=== PATIENT | female | born 1955 | race African-American/Black ===

== ENCOUNTER 2018-06-14 17:11 | Inpatient (IN) ==
[2018-06-14] MEDS ORDERED: Sod Chloride 0.9% Inj 1,000 ML IV.CONT SCH (17:45)
--- NOTE | 2018-06-14 17:52 | ED ---
HPI General Chief Complaint: Neuro Symptoms/Deficit Stated Complaint: stroke symptoms Time Seen by Provider: 06/14/18 17:34 Source: patient and family Mode of arrival: ambulatory Limitations: no limitations History of Present Illness HPI Narrative: 63 y/o female presents with increasing weakness and headache over the past couple of days. She states on June 11 she had an MRA that was abnormal that showed a blockage and Dr. Cortez wanted her to get CAT scans of her blood vessels and she showed me a prescription. She states that given she is feeling worse she elected to come here on his recommendation. She states when she had the abnormal MRI he started her on Plavix. She denies any other concurrent complaints. She states she has been experiencing these symptoms progressively over the past 3 months. Onset (ago): month(s) Timing confirmed by: family member Location: left arm and left leg Relieving factors: none Exacerbating factors: none On Anticoagulants: Yes Associated symptoms: denies other symptoms Related Data Home Medications Medication Instructions Recorded Confirmed empagliflozin-metformin [Synjardy] 1 tab PO BID 06/14/18 06/14/18 insulin glargine-lixisenatide 24 unit HS 06/14/18 06/14/18 [Soliqua 100/33] levothyroxine 50 mcg PO DAILY 06/14/18 06/14/18 lisinopril 5 mg PO DAILY 06/14/18 06/14/18 Previous Rx's Medication Instructions Recorded apixaban [Eliquis] 5 mg PO BID 30 Days #60 tab 06/16/18 atorvastatin 40 mg PO DAILY 30 Days #30 tab 06/16/18 Allergies Allergy/AdvReac Type Severity Reaction Status Date / Time codeine Allergy Severe Nausea/Vomi Verified 06/15/18 11:55 ting diclofenac Allergy Severe Hives Verified 06/15/18 11:55 etodolac Allergy Severe Hives Verified 06/15/18 11:55 flurbiprofen Allergy Severe Hives Verified 06/15/18 11:55 ibuprofen Allergy Severe Hives Verified 06/15/18 11:55 indomethacin Allergy Severe Hives Verified 06/15/18 11:55 ketoprofen Allergy Severe Hives Verified 06/15/18 11:55 ketorolac Allergy Severe Hives Verified 06/15/18 11:55 naproxen Allergy Severe Hives Verified 06/15/18 11:55 oxaprozin Allergy Severe Hives Verified 06/15/18 11:55 penicillin G Allergy Severe Hives Verified 06/15/18 11:55 *MDRO Multi-Drug Resistant AdvReac Unknown Hives Uncoded 06/15/18 11:55 Organism Review of Systems ROS: all other systems reviewed are negative FORMERLY [facility], [facility] Medical History Medical History Cholecystectomy planned (Acute) Diabetes (Acute) Surgical History Surgical History S/P DONYA-BSO (Acute) Social History Social History Substance History: No History of Abuse Second Hand Smoke Exposure: No Smoking Status: Never smoker How Often Do You Have a Drink Containing Alcohol: Never Recent Travel in [facility] within the Last 8 Weeks: No Recent Out of Country Travel within the Last 8 Weeks: No Immunization History Tetanus Immunization: >5 Years Hx Influenza Vaccine This Season: No Exam Narrative Exam Narrative: GENERAL: 63-year-old female in no apparent distress SKIN: Focused skin assessment warm/dry. HEAD: Atraumatic. Normocephalic. EYES: Pupils equal and round. No scleral icterus. No injection or drainage. ENT: No nasal bleeding or discharge. Mucous membranes pink and moist. NECK: Trachea midline. CARDIOVASCULAR: Regular rate and rhythm. RESPIRATORY: No accessory muscle use. Clear to auscultation. Breath sounds equal bilaterally. GASTROINTESTINAL: Abdomen soft, non-tender, nondistended. MUSCULOSKELETAL: No obvious deformities. No clubbing. No cyanosis. NEUROLOGICAL: Awake and alert. Patient has weakness to entire left side with arm more than leg. Normal speech. PSYCHIATRIC: Appropriate mood and affect; insight and judgment normal. Course Consultations Consultation #1: I spoke to Dr. Scruggs who, the reading radiologist regarding a CTA of the head and neck. There does appear to be an area of occlusion with some collaterals, he is unable to identify if this is an acute occlusion, however as the MRA showed evidence of occlusion as an outpatient on June 11 this is suspicious to have been present prior to today. This will be discussed further with the neurologist on-call for Dr. Cortez Time: 20:03 Consultation #2: I spoke to Dr. Arellano regarding this patient's case. Given the patient's findings he suspect that this is more chronic in nature as the patient does have collaterals, however he is concerned that the patient continues to have symptoms in spite of taking Plavix. He recommends that the patient be anticoagulated on heparin for ischemic stroke protocol without any boluses. He recommends Plavix be stopped. He recommends a blood pressure call of less than or equal to 200/100 with as needed labetalol if this is higher. Time: 20:17 Initial Documented Vital Signs Temperature 98 F 06/14/18 17:26 Pulse Rate 100 H 06/14/18 17:26 Respiratory Rate 16 06/14/18 17:26 Blood Pressure 197/86 H 06/14/18 17:26 Pulse Oximetry 99 06/14/18 17:26 Last Documented Vital Signs Temperature 98.5 F 06/18/18 07:00 Pulse Rate 80 06/18/18 13:00 Respiratory Rate 17 06/18/18 11:00 Blood Pressure 166/81 H 06/18/18 11:00 Pulse Oximetry 99 06/18/18 11:00 Sign Out Sign Out Data: Patient Sign Out occurred on 06/14/18 at 19:12. Patient's care was discussed, and care was transferred from Debra Berrios MD to Cary Martinez MD. Sign Out Comment: follow workup and reevaluate Last updated by Debra Berrios MD at 06/14/18 18:17 Post-Handoff Eval: During the course of the patient's emergency department visit, the patient's history, examination, and differential diagnosis were reviewed with the patient. The patient was placed on a threat monitoring analyst with oximetry and frequent blood pressure monitoring. The patient had IV access obtained and blood work sent for analysis. The patient's case was checked out to me by Dr. Berrios. Please see her complete history and physical. According to Dr. Berrios, the patient was in the process of being worked up as an outpatient for headaches and left-sided upper and lower extremity weakness by Dr. Cortez as an outpatient. Patient presented a CTA lab slip that was written to be done stat by Dr. Cortez, however had not been done yet. The patient was started on Plavix on June 11. She has been taking this consistently since then however her symptoms worsen, that she decided to come to the emergency department. The patient was initially provided Normal saline at 70 mL/h. The patient's diagnostic evaluation is remarkable for a white count of 8.2, platelets 394, differential within normal limits, hemoglobin 10.7 , PT 9.5, PTT 21.7, chemistries remarkable for a troponin I of less than 0.02, glucose 266, GFR 77, chloride 108. Urinalysis is unremarkable except for a glucose of 500 or greater. Radiologic studies are remarkable for chest x-ray that shows no acute abnormality, CT scan of the brain shows slight chronic small vessel ischemic and atrophic changes. I spoke to Dr. Arellano regarding this patient's case. Given the patient's findings he suspect that this is more chronic in nature as the patient does have collaterals, however he is concerned that the patient continues to have symptoms in spite of taking Plavix. He recommends that the patient be anticoagulated on heparin for ischemic stroke protocol without any boluses. He recommends Plavix be stopped. He recommends a blood pressure call of less than or equal to 200/100 with as needed labetalol if this is higher. The patient's case was discussed with the [facility] Hospitalist to do agree to admit the patient for continued evaluation and treatment. The patient's results were discussed with the patient, including the plan of care. I explained that further testing and/ or monitoring is indicated based on the patient's history, examination, and/ or laboratory findings. Therefore, I recommended admission for additional evaluation. The patient expressed understanding and was agreeable with this plan. The patient was admitted to the hospital in stable condition and sent to a bed under the care of the [facility] service. Medical Decision Making [facility] Narrative Medical decision making narrative: Will check blood work, CT and CTA imaging and reevaluate Medical Screen Exam Complete: Yes Emergency Medical Condition: Yes Differential Diagnosis Differential Diagnosis: Stroke, bleed, mass Lab Data Result diagrams: 06/16/18 04:24 06/14/18 17:53 Lab Results 06/14/18 06/14/18 06/14/18 Range/Units 17:53 17:53 18:30 WBC 8.2 (4.0-11.0) th/mm3 RBC 4.42 (4.00-5.30) mil/mm3 Hgb 10.7 L (11.6-15.3) gm/dL Hct 33.7 L (35.0-46.0) % MCV 76.3 L (80.0-100.0) fL MCH 24.3 L (27.0-34.0) pg MCHC 31.9 L (32.0-36.0) % RDW 15.6 (11.6-17.2) % Plt Count 394 (150-450) th/mm3 MPV 8.7 (7.0-11.0) fL Neut % (Auto) 56.3 (16.0-70.0) % Lymph % (Auto) 35.1 (9.0-44.0) % Mccreary % (Auto) 6.3 (0.0-8.0) % Eos % (Auto) 1.8 (0.0-4.0) % Baso % (Auto) 0.5 (0.0-2.0) % Neut # (Auto) 4.6 (1.8-7.7) th/mm3 Lymph # (Auto) 2.9 (1.0-4.8) th/mm3 Mccreary # (Auto) 0.5 (0.0-0.9) th/mm3 Eos # (Auto) 0.1 (0.0-0.4) th/mm3 Baso # (Auto) 0.0 (0.0-0.2) th/mm3 WBC Differential . Differential Comment Auto diff final ESR (0-30) mm/hr PT (9.8-11.6) sec INR Ratio APTT (24.3-30.1) sec Sodium 141 (136-145) meq/L Potassium 4.8 (3.5-5.1) meq/L Chloride 108 H (98-107) meq/L Carbon Dioxide 25.5 (21.0-32.0) meq/L Anion Gap 8 (5-15) meq/L BUN 15 (7-18) mg/dL Creatinine 0.90 (0.50-1.00) mg/dL Estimated GFR 77 L (>89) mL/min POC Glucose (68-110) mg/dl Random Glucose 266 H (74-106) mg/dL Hemoglobin A1c (4.3-6.0) % Calcium 9.1 (8.5-10.1) mg/dL Total Bilirubin 0.4 (0.2-1.0) mg/dL AST 32 (15-37) U/L ALT 22 (10-53) U/L Alkaline Phosphatase 110 (45-117) U/L Total Creatine Kinase 189 (26-192) U/L CK-MB (CK-2) 1.1 (0.5-3.6) ng/mL Troponin I Less than 0.02 L (0.02-0.05) ng/mL C-Reactive Protein (0.00-0.30) mg/dL Total Protein 8.2 (6.4-8.2) g/dL Total Protein (PEP) (6.4-8.2) gm/dL Albumin 3.5 (3.4-5.0) g/dL Albumin (PEP) (3.50-5.00) gm/dL Albumin/Globulin Ratio (1.39-2.23) Lgelo-3-Nhuaqqjww (0.11-0.29) gm/dL Yuirz-0-Etldzasjb (0.22-1.00) gm/dL Beta Globulins (0.53-1.03) gm/dL Gamma Globulins (0.50-1.39) gm/dL Triglycerides (42-150) mg/dL Cholesterol (120-200) mg/dL LDL Cholesterol, Calc (0-99) mg/dL HDL Cholesterol (40.0-60.0) mg/dL Cholesterol/HDL Ratio Ratio Vitamin B12 (193-986) pg/mL TSH (0.358-3.740) uIU/mL Free T4 (0.76-1.46) ng/dL Urine Color Straw (Yellw/Straw) Urine Clarity Clear (Clear) Urine pH 6.0 (5.0-8.5) Ur Specific [place] 1.029 (1.002-1.035) Urine Protein Negative (Neg-Trace) mg/dL Urine Glucose (UA) 500 or greater (Negative) mg/dL Urine Ketones Negative (Negative) mg/dL Urine Occult Blood Negative (Negative) Urine Nitrate Negative (Negative) Urine Bilirubin Negative (Negative) Urine Urobilinogen Less than 2 (Less than 2) mg/dL Ur Leukocyte Esterase Negative (Negative) Urine RBC 1 (0-3) /hpf Urine WBC 1 (0-5) /hpf Ur Squamous Epith Cells 1 (0-5) /hpf Micro UA Comment Culture not ind Ur Microscopic Review Not Reportable Urine Culture Comments Culture not ind JOSLYN Screen (Neg) RPR (Nonreactive) Blood Type Antibody Screen 06/14/18 06/14/18 06/15/18 Range/Units 18:30 18:30 03:12 WBC (4.0-11.0) th/mm3 RBC (4.00-5.30) mil/mm3 Hgb (11.6-15.3) gm/dL Hct (35.0-46.0) % MCV (80.0-100.0) fL MCH (27.0-34.0) pg MCHC (32.0-36.0) % RDW (11.6-17.2) % Plt Count (150-450) th/mm3 MPV (7.0-11.0) fL Neut % (Auto) (16.0-70.0) % Lymph % (Auto) (9.0-44.0) % Mccreary % (Auto) (0.0-8.0) % Eos % (Auto) (0.0-4.0) % Baso % (Auto) (0.0-2.0) % Neut # (Auto) (1.8-7.7) th/mm3 Lymph # (Auto) (1.0-4.8) th/mm3 Mccreary # (Auto) (0.0-0.9) th/mm3 Eos # (Auto) (0.0-0.4) th/mm3 Baso # (Auto) (0.0-0.2) th/mm3 WBC Differential Differential Comment ESR (0-30) mm/hr PT 9.5 L (9.8-11.6) sec INR 0.9 Ratio APTT 21.7 L (24.3-30.1) sec Sodium (136-145) meq/L Potassium (3.5-5.1) meq/L Chloride (98-107) meq/L Carbon Dioxide (21.0-32.0) meq/L Anion Gap (5-15) meq/L BUN (7-18) mg/dL Creatinine (0.50-1.00) mg/dL Estimated GFR (>89) mL/min POC Glucose 179 H (68-110) mg/dl Random Glucose (74-106) mg/dL Hemoglobin A1c (4.3-6.0) % Calcium (8.5-10.1) mg/dL Total Bilirubin (0.2-1.0) mg/dL AST (15-37) U/L ALT (10-53) U/L Alkaline Phosphatase (45-117) U/L Total Creatine Kinase (26-192) U/L CK-MB (CK-2) (0.5-3.6) ng/mL Troponin I (0.02-0.05) ng/mL C-Reactive Protein (0.00-0.30) mg/dL Total Protein (6.4-8.2) g/dL Total Protein (PEP) (6.4-8.2) gm/dL Albumin (3.4-5.0) g/dL Albumin (PEP) (3.50-5.00) gm/dL Albumin/Globulin Ratio (1.39-2.23) Xipog-8-Befdjnqlk (0.11-0.29) gm/dL Zzsyc-8-Jaqhymmwt (0.22-1.00) gm/dL Beta Globulins (0.53-1.03) gm/dL Gamma Globulins (0.50-1.39) gm/dL Triglycerides (42-150) mg/dL Cholesterol (120-200) mg/dL LDL Cholesterol, Calc (0-99) mg/dL HDL Cholesterol (40.0-60.0) mg/dL Cholesterol/HDL Ratio Ratio Vitamin B12 (193-986) pg/mL TSH (0.358-3.740) uIU/mL Free T4 (0.76-1.46) ng/dL Urine Color (Yellw/Straw) Urine Clarity (Clear) Urine pH (5.0-8.5) Ur Specific [place] (1.002-1.035) Urine Protein (Neg-Trace) mg/dL Urine Glucose (UA) (Negative) mg/dL Urine Ketones (Negative) mg/dL Urine Occult Blood (Negative) Urine Nitrate (Negative) Urine Bilirubin (Negative) Urine Urobilinogen (Less than 2) mg/dL Ur Leukocyte Esterase (Negative) Urine RBC (0-3) /hpf Urine WBC (0-5) /hpf Ur Squamous Epith Cells (0-5) /hpf Micro UA Comment Ur Microscopic Review Urine Culture Comments JOSLYN Screen (Neg) RPR (Nonreactive) Blood Type B Positive Antibody Screen Negative 06/15/18 06/15/18 06/15/18 Range/Units 03:22 03:22 03:22 WBC (4.0-11.0) th/mm3 RBC (4.00-5.30) mil/mm3 Hgb (11.6-15.3) gm/dL Hct (35.0-46.0) % MCV (80.0-100.0) fL MCH (27.0-34.0) pg MCHC (32.0-36.0) % RDW (11.6-17.2) % Plt Count (150-450) th/mm3 MPV (7.0-11.0) fL Neut % (Auto) (16.0-70.0) % Lymph % (Auto) (9.0-44.0) % Mccreary % (Auto) (0.0-8.0) % Eos % (Auto) (0.0-4.0) % Baso % (Auto) (0.0-2.0) % Neut # (Auto) (1.8-7.7) th/mm3 Lymph # (Auto) (1.0-4.8) th/mm3 Mccreary # (Auto) (0.0-0.9) th/mm3 Eos # (Auto) (0.0-0.4) th/mm3 Baso # (Auto) (0.0-0.2) th/mm3 WBC Differential Differential Comment ESR (0-30) mm/hr PT (9.8-11.6) sec INR Ratio APTT 37.3 H D (24.3-30.1) sec Sodium (136-145) meq/L Potassium (3.5-5.1) meq/L Chloride (98-107) meq/L Carbon Dioxide (21.0-32.0) meq/L Anion Gap (5-15) meq/L BUN (7-18) mg/dL Creatinine (0.50-1.00) mg/dL Estimated GFR (>89) mL/min POC Glucose (68-110) mg/dl Random Glucose (74-106) mg/dL Hemoglobin A1c 10.6 H (4.3-6.0) % Calcium (8.5-10.1) mg/dL Total Bilirubin (0.2-1.0) mg/dL AST (15-37) U/L ALT (10-53) U/L Alkaline Phosphatase (45-117) U/L Total Creatine Kinase (26-192) U/L CK-MB (CK-2) (0.5-3.6) ng/mL Troponin I (0.02-0.05) ng/mL C-Reactive Protein (0.00-0.30) mg/dL Total Protein (6.4-8.2) g/dL Total Protein (PEP) (6.4-8.2) gm/dL Albumin (3.4-5.0) g/dL Albumin (PEP) (3.50-5.00) gm/dL Albumin/Globulin Ratio (1.39-2.23) Khxky-6-Czwgmcylg (0.11-0.29) gm/dL Jkrus-9-Jppwcxzbh (0.22-1.00) gm/dL Beta Globulins (0.53-1.03) gm/dL Gamma Globulins (0.50-1.39) gm/dL Triglycerides 110 (42-150) mg/dL Cholesterol 141 (120-200) mg/dL LDL Cholesterol, Calc 56 (0-99) mg/dL HDL Cholesterol 63.1 H (40.0-60.0) mg/dL Cholesterol/HDL Ratio 2.23 Ratio Vitamin B12 (193-986) pg/mL TSH (0.358-3.740) uIU/mL Free T4 (0.76-1.46) ng/dL Urine Color (Yellw/Straw) Urine Clarity (Clear) Urine pH (5.0-8.5) Ur Specific [place] (1.002-1.035) Urine Protein (Neg-Trace) mg/dL Urine Glucose (UA) (Negative) mg/dL Urine Ketones (Negative) mg/dL Urine Occult Blood (Negative) Urine Nitrate (Negative) Urine Bilirubin (Negative) Urine Urobilinogen (Less than 2) mg/dL Ur Leukocyte Esterase (Negative) Urine RBC (0-3) /hpf Urine WBC (0-5) /hpf Ur Squamous Epith Cells (0-5) /hpf Micro UA Comment Ur Microscopic Review Urine Culture Comments JOSLYN Screen (Neg) RPR (Nonreactive) Blood Type Antibody Screen 06/15/18 06/15/18 06/15/18 Range/Units 03:22 03:22 03:22 WBC 9.3 (4.0-11.0) th/mm3 RBC 4.19 (4.00-5.30) mil/mm3 Hgb 10.7 L (11.6-15.3) gm/dL Hct 31.6 L (35.0-46.0) % MCV 75.5 L (80.0-100.0) fL MCH 25.6 L (27.0-34.0) pg MCHC 33.9 (32.0-36.0) % RDW 15.4 (11.6-17.2) % Plt Count 331 (150-450) th/mm3 MPV 8.2 (7.0-11.0) fL Neut % (Auto) (16.0-70.0) % Lymph % (Auto) (9.0-44.0) % Mccreary % (Auto) (0.0-8.0) % Eos % (Auto) (0.0-4.0) % Baso % (Auto) (0.0-2.0) % Neut # (Auto) (1.8-7.7) th/mm3 Lymph # (Auto) (1.0-4.8) th/mm3 Mccreary # (Auto) (0.0-0.9) th/mm3 Eos # (Auto) (0.0-0.4) th/mm3 Baso # (Auto) (0.0-0.2) th/mm3 WBC Differential Differential Comment ESR 33 H (0-30) mm/hr PT (9.8-11.6) sec INR Ratio APTT (24.3-30.1) sec Sodium (136-145) meq/L Potassium (3.5-5.1) meq/L Chloride (98-107) meq/L Carbon Dioxide (21.0-32.0) meq/L Anion Gap (5-15) meq/L BUN (7-18) mg/dL Creatinine (0.50-1.00) mg/dL Estimated GFR (>89) mL/min POC Glucose (68-110) mg/dl Random Glucose (74-106) mg/dL Hemoglobin A1c (4.3-6.0) % Calcium (8.5-10.1) mg/dL Total Bilirubin (0.2-1.0) mg/dL AST (15-37) U/L ALT (10-53) U/L Alkaline Phosphatase (45-117) U/L Total Creatine Kinase (26-192) U/L CK-MB (CK-2) (0.5-3.6) ng/mL Troponin I (0.02-0.05) ng/mL C-Reactive Protein Less than 0.29 (0.00-0.30) mg/dL Total Protein (6.4-8.2) g/dL Total Protein (PEP) (6.4-8.2) gm/dL Albumin (3.4-5.0) g/dL Albumin (PEP) (3.50-5.00) gm/dL Albumin/Globulin Ratio (1.39-2.23) Jyccc-9-Afjnnyila (0.11-0.29) gm/dL Thegv-3-Khzdgmmlp (0.22-1.00) gm/dL Beta Globulins (0.53-1.03) gm/dL Gamma Globulins (0.50-1.39) gm/dL Triglycerides (42-150) mg/dL Cholesterol (120-200) mg/dL LDL Cholesterol, Calc (0-99) mg/dL HDL Cholesterol (40.0-60.0) mg/dL Cholesterol/HDL Ratio Ratio Vitamin B12 (193-986) pg/mL TSH (0.358-3.740) uIU/mL Free T4 (0.76-1.46) ng/dL Urine Color (Yellw/Straw) Urine Clarity (Clear) Urine pH (5.0-8.5) Ur Specific [place] (1.002-1.035) Urine Protein (Neg-Trace) mg/dL Urine Glucose (UA) (Negative) mg/dL Urine Ketones (Negative) mg/dL Urine Occult Blood (Negative) Urine Nitrate (Negative) Urine Bilirubin (Negative) Urine Urobilinogen (Less than 2) mg/dL Ur Leukocyte Esterase (Negative) Urine RBC (0-3) /hpf Urine WBC (0-5) /hpf Ur Squamous Epith Cells (0-5) /hpf Micro UA Comment Ur Microscopic Review Urine Culture Comments JOSLYN Screen (Neg) RPR (Nonreactive) Blood Type Antibody Screen 06/15/18 06/15/18 06/15/18 Range/Units 08:01 09:17 11:38 WBC (4.0-11.0) th/mm3 RBC (4.00-5.30) mil/mm3 Hgb (11.6-15.3) gm/dL Hct (35.0-46.0) % MCV (80.0-100.0) fL MCH (27.0-34.0) pg MCHC (32.0-36.0) % RDW (11.6-17.2) % Plt Count (150-450) th/mm3 MPV (7.0-11.0) fL Neut % (Auto) (16.0-70.0) % Lymph % (Auto) (9.0-44.0) % Mccre[place] % (Auto) (0.0-8.0) % Eos % (Auto) (0.0-4.0) % Baso % (Auto) (0.0-2.0) % Neut # (Auto) (1.8-7.7) th/mm3 Lymph # (Auto) (1.0-4.8) th/mm3 Mccreary # (Auto) (0.0-0.9) th/mm3 Eos # (Auto) (0.0-0.4) th/mm3 Baso # (Auto) (0.0-0.2) th/mm3 WBC Differential Differential Comment ESR (0-30) mm/hr PT (9.8-11.6) sec INR Ratio APTT 41.7 H (24.3-30.1) sec Sodium (136-145) meq/L Potassium (3.5-5.1) meq/L Chloride (98-107) meq/L Carbon Dioxide (21.0-32.0) meq/L Anion Gap (5-15) meq/L BUN (7-18) mg/dL Creatinine (0.50-1.00) mg/dL Estimated GFR (>89) mL/min POC Glucose 157 H 148 H (68-110) mg/dl Random Glucose (74-106) mg/dL Hemoglobin A1c (4.3-6.0) % Calcium (8.5-10.1) mg/dL Total Bilirubin (0.2-1.0) mg/dL AST (15-37) U/L ALT (10-53) U/L Alkaline Phosphatase (45-117) U/L Total Creatine Kinase (26-192) U/L CK-MB (CK-2) (0.5-3.6) ng/mL Troponin I (0.02-0.05) ng/mL C-Reactive Protein (0.00-0.30) mg/dL Total Protein (6.4-8.2) g/dL Total Protein (PEP) (6.4-8.2) gm/dL Albumin (3.4-5.0) g/dL Albumin (PEP) (3.50-5.00) gm/dL Albumin/Globulin Ratio (1.39-2.23) Cjqxa-7-Aujxmvvcw (0.11-0.29) gm/dL Oteei-4-Xieovdhxn (0.22-1.00) gm/dL Beta Globulins (0.53-1.03) gm/dL Gamma Globulins (0.50-1.39) gm/dL Triglycerides (42-150) mg/dL Cholesterol (120-200) mg/dL LDL Cholesterol, Calc (0-99) mg/dL HDL Cholesterol (40.0-60.0) mg/dL Cholesterol/HDL Ratio Ratio Vitamin B12 (193-986) pg/mL TSH (0.358-3.740) uIU/mL Free T4 (0.76-1.46) ng/dL Urine Color (Yellw/Straw) Urine Clarity (Clear) Urine pH (5.0-8.5) Ur Specific [place] (1.002-1.035) Urine Protein (Neg-Trace) mg/dL Urine Glucose (UA) (Negative) mg/dL Urine Ketones (Negative) mg/dL Urine Occult Blood (Negative) Urine Nitrate (Negative) Urine Bilirubin (Negative) Urine Urobilinogen (Less than 2) mg/dL Ur Leukocyte Esterase (Negative) Urine RBC (0-3) /hpf Urine WBC (0-5) /hpf Ur Squamous Epith Cells (0-5) /hpf Micro UA Comment Ur Microscopic Review Urine Culture Comments JOSLYN Screen (Neg) RPR (Nonreactive) Blood Type Antibody Screen 06/15/18 06/15/18 06/15/18 Range/Units 15:12 17:23 20:12 WBC (4.0-11.0) th/mm3 RBC (4.00-5.30) mil/mm3 Hgb (11.6-15.3) gm/dL Hct (35.0-46.0) % MCV (80.0-100.0) fL MCH (27.0-34.0) pg MCHC (32.0-36.0) % RDW (11.6-17.2) % Plt Count (150-450) th/mm3 MPV (7.0-11.0) fL Neut % (Auto) (16.0-70.0) % Lymph % (Auto) (9.0-44.0) % Mccre[place] % (Auto) (0.0-8.0) % Eos % (Auto) (0.0-4.0) % Baso % (Auto) (0.0-2.0) % Neut # (Auto) (1.8-7.7) th/mm3 Lymph # (Auto) (1.0-4.8) th/mm3 Mccreary # (Auto) (0.0-0.9) th/mm3 Eos # (Auto) (0.0-0.4) th/mm3 Baso # (Auto) (0.0-0.2) th/mm3 WBC Differential Differential Comment ESR (0-30) mm/hr PT (9.8-11.6) sec INR Ratio APTT 25.2 D (24.3-30.1) sec Sodium (136-145) meq/L Potassium (3.5-5.1) meq/L Chloride (98-107) meq/L Carbon Dioxide (21.0-32.0) meq/L Anion Gap (5-15) meq/L BUN (7-18) mg/dL Creatinine (0.50-1.00) mg/dL Estimated GFR (>89) mL/min POC Glucose 172 H 228 H (68-110) mg/dl Random Glucose (74-106) mg/dL Hemoglobin A1c (4.3-6.0) % Calcium (8.5-10.1) mg/dL Total Bilirubin (0.2-1.0) mg/dL AST (15-37) U/L ALT (10-53) U/L Alkaline Phosphatase (45-117) U/L Total Creatine Kinase (26-192) U/L CK-MB (CK-2) (0.5-3.6) ng/mL Troponin I (0.02-0.05) ng/mL C-Reactive Protein (0.00-0.30) mg/dL Total Protein (6.4-8.2) g/dL Total Protein (PEP) (6.4-8.2) gm/dL Albumin (3.4-5.0) g/dL Albumin (PEP) (3.50-5.00) gm/dL Albumin/Globulin Ratio (1.39-2.23) Bibqu-0-Zwstgbmpt (0.11-0.29) gm/dL Rbjyr-7-Mibzijseb (0.22-1.00) gm/dL Beta Globulins (0.53-1.03) gm/dL Gamma Globulins (0.50-1.39) gm/dL Triglycerides (42-150) mg/dL Cholesterol (120-200) mg/dL LDL Cholesterol, Calc (0-99) mg/dL HDL Cholesterol (40.0-60.0) mg/dL Cholesterol/HDL Ratio Ratio Vitamin B12 (193-986) pg/mL TSH (0.358-3.740) uIU/mL Free T4 (0.76-1.46) ng/dL Urine Color (Yellw/Straw) Urine Clarity (Clear) Urine pH (5.0-8.5) Ur Specific [place] (1.002-1.035) Urine Protein (Neg-Trace) mg/dL Urine Glucose (UA) (Negative) mg/dL Urine Ketones (Negative) mg/dL Urine Occult Blood (Negative) Urine Nitrate (Negative) Urine Bilirubin (Negative) Urine Urobilinogen (Less than 2) mg/dL Ur Leukocyte Esterase (Negative) Urine RBC (0-3) /hpf Urine WBC (0-5) /hpf Ur Squamous Epith Cells (0-5) /hpf Micro UA Comment Ur Microscopic Review Urine Culture Comments JOSLYN Screen (Neg) RPR (Nonreactive) Blood Type Antibody Screen 06/15/18 06/16/18 06/16/18 Range/Units 21:37 03:52 04:24 WBC 6.7 (4.0-11.0) th/mm3 RBC 4.51 (4.00-5.30) mil/mm3 Hgb 10.8 L (11.6-15.3) gm/dL Hct 34.2 L (35.0-46.0) % MCV 75.8 L (80.0-100.0) fL MCH 24.0 L (27.0-34.0) pg MCHC 31.6 L (32.0-36.0) % RDW 15.6 (11.6-17.2) % Plt Count 344 (150-450) th/mm3 MPV 8.3 (7.0-11.0) fL Neut % (Auto) (16.0-70.0) % Lymph % (Auto) (9.0-44.0) % Mccreary % (Auto) (0.0-8.0) % Eos % (Auto) (0.0-4.0) % Baso % (Auto) (0.0-2.0) % Neut # (Auto) (1.8-7.7) th/mm3 Lymph # (Auto) (1.0-4.8) th/mm3 Mccreary # (Auto) (0.0-0.9) th/mm3 Eos # (Auto) (0.0-0.4) th/mm3 Baso # (Auto) (0.0-0.2) th/mm3 WBC Differential Differential Comment ESR (0-30) mm/hr PT (9.8-11.6) sec INR Ratio APTT 46.5 H D (24.3-30.1) sec Sodium (136-145) meq/L Potassium (3.5-5.1) meq/L Chloride (98-107) meq/L Carbon Dioxide (21.0-32.0) meq/L Anion Gap (5-15) meq/L BUN (7-18) mg/dL Creatinine (0.50-1.00) mg/dL Estimated GFR (>89) mL/min POC Glucose 237 H (68-110) mg/dl Random Glucose (74-106) mg/dL Hemoglobin A1c (4.3-6.0) % Calcium (8.5-10.1) mg/dL Total Bilirubin (0.2-1.0) mg/dL AST (15-37) U/L ALT (10-53) U/L Alkaline Phosphatase (45-117) U/L Total Creatine Kinase (26-192) U/L CK-MB (CK-2) (0.5-3.6) ng/mL Troponin I (0.02-0.05) ng/mL C-Reactive Protein (0.00-0.30) mg/dL Total Protein (6.4-8.2) g/dL Total Protein (PEP) (6.4-8.2) gm/dL Albumin (3.4-5.0) g/dL Albumin (PEP) (3.50-5.00) gm/dL Albumin/Globulin Ratio (1.39-2.23) Eebbd-7-Vbxzqbpxb (0.11-0.29) gm/dL Bjnkn-6-Upbxbewmt (0.22-1.00) gm/dL Beta Globulins (0.53-1.03) gm/dL Gamma Globulins (0.50-1.39) gm/dL Triglycerides (42-150) mg/dL Cholesterol (120-200) mg/dL LDL Cholesterol, Calc (0-99) mg/dL HDL Cholesterol (40.0-60.0) mg/dL Cholesterol/HDL Ratio Ratio Vitamin B12 (193-986) pg/mL TSH (0.358-3.740) uIU/mL Free T4 (0.76-1.46) ng/dL Urine Color (Yellw/Straw) Urine Clarity (Clear) Urine pH (5.0-8.5) Ur Specific [place] (1.002-1.035) Urine Protein (Neg-Trace) mg/dL Urine Glucose (UA) (Negative) mg/dL Urine Ketones (Negative) mg/dL Urine Occult Blood (Negative) Urine Nitrate (Negative) Urine Bilirubin (Negative) Urine Urobilinogen (Less than 2) mg/dL Ur Leukocyte Esterase (Negative) Urine RBC (0-3) /hpf Urine WBC (0-5) /hpf Ur Squamous Epith Cells (0-5) /hpf Micro UA Comment Ur Microscopic Review Urine Culture Comments JOSLYN Screen (Neg) RPR (Nonreactive) Blood Type Antibody Screen 06/16/18 06/16/18 06/16/18 Range/Units 04:24 07:42 17:34 WBC (4.0-11.0) th/mm3 RBC (4.00-5.30) mil/mm3 Hgb (11.6-15.3) gm/dL Hct (35.0-46.0) % MCV (80.0-100.0) fL MCH (27.0-34.0) pg MCHC (32.0-36.0) % RDW (11.6-17.2) % Plt Count (150-450) th/mm3 MPV (7.0-11.0) fL Neut % (Auto) (16.0-70.0) % Lymph % (Auto) (9.0-44.0) % Mccreary % (Auto) (0.0-8.0) % Eos % (Auto) (0.0-4.0) % Baso % (Auto) (0.0-2.0) % Neut # (Auto) (1.8-7.7) th/mm3 Lymph # (Auto) (1.0-4.8) th/mm3 Mccreary # (Auto) (0.0-0.9) th/mm3 Eos # (Auto) (0.0-0.4) th/mm3 Baso # (Auto) (0.0-0.2) th/mm3 WBC Differential Differential Comment ESR (0-30) mm/hr PT (9.8-11.6) sec INR Ratio APTT 60.7 H D (24.3-30.1) sec Sodium (136-145) meq/L Potassium (3.5-5.1) meq/L Chloride (98-107) meq/L Carbon Dioxide (21.0-32.0) meq/L Anion Gap (5-15) meq/L BUN (7-18) mg/dL Creatinine (0.50-1.00) mg/dL Estimated GFR (>89) mL/min POC Glucose 170 H 197 H (68-110) mg/dl Random Glucose (74-106) mg/dL Hemoglobin A1c (4.3-6.0) % Calcium (8.5-10.1) mg/dL Total Bilirubin (0.2-1.0) mg/dL AST (15-37) U/L ALT (10-53) U/L Alkaline Phosphatase (45-117) U/L Total Creatine Kinase (26-192) U/L CK-MB (CK-2) (0.5-3.6) ng/mL Troponin I (0.02-0.05) ng/mL C-Reactive Protein (0.00-0.30) mg/dL Total Protein (6.4-8.2) g/dL Total Protein (PEP) (6.4-8.2) gm/dL Albumin (3.4-5.0) g/dL Albumin (PEP) (3.50-5.00) gm/dL Albumin/Globulin Ratio (1.39-2.23) Cqsob-6-Bpakryjjl (0.11-0.29) gm/dL Wkdcl-6-Pgjmhgvmq (0.22-1.00) gm/dL Beta Globulins (0.53-1.03) gm/dL Gamma Globulins (0.50-1.39) gm/dL Triglycerides (42-150) mg/dL Cholesterol (120-200) mg/dL LDL Cholesterol, Calc (0-99) mg/dL HDL Cholesterol (40.0-60.0) mg/dL Cholesterol/HDL Ratio Ratio Vitamin B12 (193-986) pg/mL TSH (0.358-3.740) uIU/mL Free T4 (0.76-1.46) ng/dL Urine Color (Yellw/Straw) Urine Clarity (Clear) Urine pH (5.0-8.5) Ur Specific [place] (1.002-1.035) Urine Protein (Neg-Trace) mg/dL Urine Glucose (UA) (Negative) mg/dL Urine Ketones (Negative) mg/dL Urine Occult Blood (Negative) Urine Nitrate (Negative) Urine Bilirubin (Negative) Urine Urobilinogen (Less than 2) mg/dL Ur Leukocyte Esterase (Negative) Urine RBC (0-3) /hpf Urine WBC (0-5) /hpf Ur Squamous Epith Cells (0-5) /hpf Micro UA Comment Ur Microscopic Review Urine Culture Comments JOSLYN Screen (Neg) RPR (Nonreactive) Blood Type Antibody Screen 06/16/18 06/17/18 06/17/18 Range/Units 21:47 01:51 07:58 WBC (4.0-11.0) th/mm3 RBC (4.00-5.30) mil/mm3 Hgb (11.6-15.3) gm/dL Hct (35.0-46.0) % MCV (80.0-100.0) fL MCH (27.0-34.0) pg MCHC (32.0-36.0) % RDW (11.6-17.2) % Plt Count (150-450) th/mm3 MPV (7.0-11.0) fL Neut % (Auto) (16.0-70.0) % Lymph % (Auto) (9.0-44.0) % Mccreary % (Auto) (0.0-8.0) % Eos % (Auto) (0.0-4.0) % Baso % (Auto) (0.0-2.0) % Neut # (Auto) (1.8-7.7) th/mm3 Lymph # (Auto) (1.0-4.8) th/mm3 Mccreary # (Auto) (0.0-0.9) th/mm3 Eos # (Auto) (0.0-0.4) th/mm3 Baso # (Auto) (0.0-0.2) th/mm3 WBC Differential Differential Comment ESR (0-30) mm/hr PT (9.8-11.6) sec INR Ratio APTT (24.3-30.1) sec Sodium (136-145) meq/L Potassium (3.5-5.1) meq/L Chloride (98-107) meq/L Carbon Dioxide (21.0-32.0) meq/L Anion Gap (5-15) meq/L BUN (7-18) mg/dL Creatinine (0.50-1.00) mg/dL Estimated GFR (>89) mL/min POC Glucose 241 H 250 H 168 H (68-110) mg/dl Random Glucose (74-106) mg/dL Hemoglobin A1c (4.3-6.0) % Calcium (8.5-10.1) mg/dL Total Bilirubin (0.2-1.0) mg/dL AST (15-37) U/L ALT (10-53) U/L Alkaline Phosphatase (45-117) U/L Total Creatine Kinase (26-192) U/L CK-MB (CK-2) (0.5-3.6) ng/mL Troponin I (0.02-0.05) ng/mL C-Reactive Protein (0.00-0.30) mg/dL Total Protein (6.4-8.2) g/dL Total Protein (PEP) (6.4-8.2) gm/dL Albumin (3.4-5.0) g/dL Albumin (PEP) (3.50-5.00) gm/dL Albumin/Globulin Ratio (1.39-2.23) Wgqhv-8-Qzlybfqft (0.11-0.29) gm/dL Vwiwo-0-Mzffraoaw (0.22-1.00) gm/dL Beta Globulins (0.53-1.03) gm/dL Gamma Globulins (0.50-1.39) gm/dL Triglycerides (42-150) mg/dL Cholesterol (120-200) mg/dL LDL Cholesterol, Calc (0-99) mg/dL HDL Cholesterol (40.0-60.0) mg/dL Cholesterol/HDL Ratio Ratio Vitamin B12 (193-986) pg/mL TSH (0.358-3.740) uIU/mL Free T4 (0.76-1.46) ng/dL Urine Color (Yellw/Straw) Urine Clarity (Clear) Urine pH (5.0-8.5) Ur Specific [place] (1.002-1.035) Urine Protein (Neg-Trace) mg/dL Urine Glucose (UA) (Negative) mg/dL Urine Ketones (Negative) mg/dL Urine Occult Blood (Negative) Urine Nitrate (Negative) Urine Bilirubin (Negative) Urine Urobilinogen (Less than 2) mg/dL Ur Leukocyte Esterase (Negative) Urine RBC (0-3) /hpf Urine WBC (0-5) /hpf Ur Squamous Epith Cells (0-5) /hpf Micro UA Comment Ur Microscopic Review Urine Culture Comments JOSLYN Screen (Neg) RPR (Nonreactive) Blood Type Antibody Screen 06/17/18 06/17/18 06/17/18 Range/Units 09:31 11:00 11:00 WBC (4.0-11.0) th/mm3 RBC (4.00-5.30) mil/mm3 Hgb (11.6-15.3) gm/dL Hct (35.0-46.0) % MCV (80.0-100.0) fL MCH (27.0-34.0) pg MCHC (32.0-36.0) % RDW (11.6-17.2) % Plt Count (150-450) th/mm3 MPV (7.0-11.0) fL Neut % (Auto) (16.0-70.0) % Lymph % (Auto) (9.0-44.0) % [place]re[place] % (Auto) (0.0-8.0) % Eos % (Auto) (0.0-4.0) % Baso % (Auto) (0.0-2.0) % Neut # (Auto) (1.8-7.7) th/mm3 Lymph # (Auto) (1.0-4.8) th/mm3 Mccreary # (Auto) (0.0-0.9) th/mm3 Eos # (Auto) (0.0-0.4) th/mm3 Baso # (Auto) (0.0-0.2) th/mm3 WBC Differential Differential Comment ESR (0-30) mm/hr PT (9.8-11.6) sec INR Ratio APTT (24.3-30.1) sec Sodium (136-145) meq/L Potassium (3.5-5.1) meq/L Chloride (98-107) meq/L Carbon Dioxide (21.0-32.0) meq/L Anion Gap (5-15) meq/L BUN (7-18) mg/dL Creatinine (0.50-1.00) mg/dL Estimated GFR (>89) mL/min POC Glucose (68-110) mg/dl Random Glucose (74-106) mg/dL Hemoglobin A1c (4.3-6.0) % Calcium (8.5-10.1) mg/dL Total Bilirubin (0.2-1.0) mg/dL AST (15-37) U/L ALT (10-53) U/L Alkaline Phosphatase (45-117) U/L Total Creatine Kinase (26-192) U/L CK-MB (CK-2) (0.5-3.6) ng/mL Troponin I Cancelled Less than 0.02 L (0.02-0.05) ng/mL C-Reactive Protein (0.00-0.30) mg/dL Total Protein (6.4-8.2) g/dL Total Protein (PEP) (6.4-8.2) gm/dL Albumin (3.4-5.0) g/dL Albumin (PEP) (3.50-5.00) gm/dL Albumin/Globulin Ratio (1.39-2.23) Ekxrp-0-Ttfwbsnrp (0.11-0.29) gm/dL Hfqls-6-Rlntphpyv (0.22-1.00) gm/dL Beta Globulins (0.53-1.03) gm/dL Gamma Globulins (0.50-1.39) gm/dL Triglycerides (42-150) mg/dL Cholesterol (120-200) mg/dL LDL Cholesterol, Calc (0-99) mg/dL HDL Cholesterol (40.0-60.0) mg/dL Cholesterol/HDL Ratio Ratio Vitamin B12 (193-986) pg/mL TSH 1.930 (0.358-3.740) uIU/mL Free T4 (0.76-1.46) ng/dL Urine Color (Yellw/Straw) Urine Clarity (Clear) Urine pH (5.0-8.5) Ur Specific [place] (1.002-1.035) Urine Protein (Neg-Trace) mg/dL Urine Glucose (UA) (Negative) mg/dL Urine Ketones (Negative) mg/dL Urine Occult Blood (Negative) Urine Nitrate (Negative) Urine Bilirubin (Negative) Urine Urobilinogen (Less than 2) mg/dL Ur Leukocyte Esterase (Negative) Urine RBC (0-3) /hpf Urine WBC (0-5) /hpf Ur Squamous Epith Cells (0-5) /hpf Micro UA Comment Ur Microscopic Review Urine Culture Comments JOSLYN Screen (Neg) RPR (Nonreactive) Blood Type Antibody Screen 06/17/18 06/17/18 06/17/18 Range/Units 11:00 11:00 11:05 WBC (4.0-11.0) th/mm3 RBC (4.00-5.30) mil/mm3 Hgb (11.6-15.3) gm/dL Hct (35.0-46.0) % MCV (80.0-100.0) fL MCH (27.0-34.0) pg MCHC (32.0-36.0) % RDW (11.6-17.2) % Plt Count (150-450) th/mm3 MPV (7.0-11.0) fL Neut % (Auto) (16.0-70.0) % Lymph % (Auto) (9.0-44.0) % [place] % (Auto) (0.0-8.0) % Eos % (Auto) (0.0-4.0) % Baso % (Auto) (0.0-2.0) % Neut # (Auto) (1.8-7.7) th/mm3 Lymph # (Auto) (1.0-4.8) th/mm3 Mccreary # (Auto) (0.0-0.9) th/mm3 Eos # (Auto) (0.0-0.4) th/mm3 Baso # (Auto) (0.0-0.2) th/mm3 WBC Differential Differential Comment ESR (0-30) mm/hr PT (9.8-11.6) sec INR Ratio APTT (24.3-30.1) sec Sodium (136-145) meq/L Potassium (3.5-5.1) meq/L Chloride (98-107) meq/L Carbon Dioxide (21.0-32.0) meq/L Anion Gap (5-15) meq/L BUN (7-18) mg/dL Creatinine (0.50-1.00) mg/dL Estimated GFR (>89) mL/min POC Glucose 332 H (68-110) mg/dl Random Glucose (74-106) mg/dL Hemoglobin A1c (4.3-6.0) % Calcium (8.5-10.1) mg/dL Total Bilirubin (0.2-1.0) mg/dL AST (15-37) U/L ALT (10-53) U/L Alkaline Phosphatase (45-117) U/L Total Creatine Kinase (26-192) U/L CK-MB (CK-2) (0.5-3.6) ng/mL Troponin I (0.02-0.05) ng/mL C-Reactive Protein (0.00-0.30) mg/dL Total Protein (6.4-8.2) g/dL Total Protein (PEP) (6.4-8.2) gm/dL Albumin (3.4-5.0) g/dL Albumin (PEP) (3.50-5.00) gm/dL Albumin/Globulin Ratio (1.39-2.23) Hsrja-7-Dehhytops (0.11-0.29) gm/dL Nmwgc-1-Qusujvzxo (0.22-1.00) gm/dL Beta Globulins (0.53-1.03) gm/dL Gamma Globulins (0.50-1.39) gm/dL Triglycerides (42-150) mg/dL Cholesterol (120-200) mg/dL LDL Cholesterol, Calc (0-99) mg/dL HDL Cholesterol (40.0-60.0) mg/dL Cholesterol/HDL Ratio Ratio Vitamin B12 (193-986) pg/mL TSH (0.358-3.740) uIU/mL Free T4 (0.76-1.46) ng/dL Urine Color (Yellw/Straw) Urine Clarity (Clear) Urine pH (5.0-8.5) Ur Specific [place] (1.002-1.035) Urine Protein (Neg-Trace) mg/dL Urine Glucose (UA) (Negative) mg/dL Urine Ketones (Negative) mg/dL Urine Occult Blood (Negative) Urine Nitrate (Negative) Urine Bilirubin (Negative) Urine Urobilinogen (Less than 2) mg/dL Ur Leukocyte Esterase (Negative) Urine RBC (0-3) /hpf Urine WBC (0-5) /hpf Ur Squamous Epith Cells (0-5) /hpf Micro UA Comment Ur Microscopic Review Urine Culture Comments JOSLYN Screen Pos H (Neg) RPR Nonreactive (Nonreactive) Blood Type Antibody Screen 06/17/18 06/17/18 06/17/18 Range/Units 12:55 16:15 18:08 WBC (4.0-11.0) th/mm3 RBC (4.00-5.30) mil/mm3 Hgb (11.6-15.3) gm/dL Hct (35.0-46.0) % MCV (80.0-100.0) fL MCH (27.0-34.0) pg MCHC (32.0-36.0) % RDW (11.6-17.2) % Plt Count (150-450) th/mm3 MPV (7.0-11.0) fL Neut % (Auto) (16.0-70.0) % Lymph % (Auto) (9.0-44.0) % [place] % (Auto) (0.0-8.0) % Eos % (Auto) (0.0-4.0) % Baso % (Auto) (0.0-2.0) % Neut # (Auto) (1.8-7.7) th/mm3 Lymph # (Auto) (1.0-4.8) th/mm3 Mccreary # (Auto) (0.0-0.9) th/mm3 Eos # (Auto) (0.0-0.4) th/mm3 Baso # (Auto) (0.0-0.2) th/mm3 WBC Differential Differential Comment ESR (0-30) mm/hr PT (9.8-11.6) sec INR Ratio APTT (24.3-30.1) sec Sodium (136-145) meq/L Potassium (3.5-5.1) meq/L Chloride (98-107) meq/L Carbon Dioxide (21.0-32.0) meq/L Anion Gap (5-15) meq/L BUN (7-18) mg/dL Creatinine (0.50-1.00) mg/dL Estimated GFR (>89) mL/min POC Glucose 238 H 176 H (68-110) mg/dl Random Glucose (74-106) mg/dL Hemoglobin A1c (4.3-6.0) % Calcium (8.5-10.1) mg/dL Total Bilirubin (0.2-1.0) mg/dL AST (15-37) U/L ALT (10-53) U/L Alkaline Phosphatase (45-117) U/L Total Creatine Kinase (26-192) U/L CK-MB (CK-2) (0.5-3.6) ng/mL Troponin I Less than 0.02 L (0.02-0.05) ng/mL C-Reactive Protein (0.00-0.30) mg/dL Total Protein (6.4-8.2) g/dL Total Protein (PEP) 8.1 (6.4-8.2) gm/dL Albumin (3.4-5.0) g/dL Albumin (PEP) 4.54 (3.50-5.00) gm/dL Albumin/Globulin Ratio 1.28 L (1.39-2.23) Dkqom-4-Vplkmblpy 0.28 (0.11-0.29) gm/dL Chknc-3-Vmioteowl 0.92 (0.22-1.00) gm/dL Beta Globulins 1.13 H (0.53-1.03) gm/dL Gamma Globulins 1.22 (0.50-1.39) gm/dL Triglycerides (42-150) mg/dL Cholesterol (120-200) mg/dL LDL Cholesterol, Calc (0-99) mg/dL HDL Cholesterol (40.0-60.0) mg/dL Cholesterol/HDL Ratio Ratio Vitamin B12 339 (193-986) pg/mL TSH (0.358-3.740) uIU/mL Free T4 1.08 (0.76-1.46) ng/dL Urine Color (Yellw/Straw) Urine Clarity (Clear) Urine pH (5.0-8.5) Ur Specific [place] (1.002-1.035) Urine Protein (Neg-Trace) mg/dL Urine Glucose (UA) (Negative) mg/dL Urine Ketones (Negative) mg/dL Urine Occult Blood (Negative) Urine Nitrate (Negative) Urine Bilirubin (Negative) Urine Urobilinogen (Less than 2) mg/dL Ur Leukocyte Esterase (Negative) Urine RBC (0-3) /hpf Urine WBC (0-5) /hpf Ur Squamous Epith Cells (0-5) /hpf Micro UA Comment Ur Microscopic Review Urine Culture Comments JOSLYN Screen (Neg) RPR (Nonreactive) Blood Type Antibody Screen 06/17/18 06/18/18 06/18/18 Range/Units 21:16 03:38 07:38 WBC (4.0-11.0) th/mm3 RBC (4.00-5.30) mil/mm3 Hgb (11.6-15.3) gm/dL Hct (35.0-46.0) % MCV (80.0-100.0) fL MCH (27.0-34.0) pg MCHC (32.0-36.0) % RDW (11.6-17.2) % Plt Count (150-450) th/mm3 MPV (7.0-11.0) fL Neut % (Auto) (16.0-70.0) % Lymph % (Auto) (9.0-44.0) % [place]re[place] % (Auto) (0.0-8.0) % Eos % (Auto) (0.0-4.0) % Baso % (Auto) (0.0-2.0) % Neut # (Auto) (1.8-7.7) th/mm3 Lymph # (Auto) (1.0-4.8) th/mm3 Mccreary # (Auto) (0.0-0.9) th/mm3 Eos # (Auto) (0.0-0.4) th/mm3 Baso # (Auto) (0.0-0.2) th/mm3 WBC Differential Differential Comment ESR (0-30) mm/hr PT (9.8-11.6) sec INR Ratio APTT (24.3-30.1) sec Sodium (136-145) meq/L Potassium (3.5-5.1) meq/L Chloride (98-107) meq/L Carbon Dioxide (21.0-32.0) meq/L Anion Gap (5-15) meq/L BUN (7-18) mg/dL Creatinine (0.50-1.00) mg/dL Estimated GFR (>89) mL/min POC Glucose 357 H 261 H 239 H (68-110) mg/dl Random Glucose (74-106) mg/dL Hemoglobin A1c (4.3-6.0) % Calcium (8.5-10.1) mg/dL Total Bilirubin (0.2-1.0) mg/dL AST (15-37) U/L ALT (10-53) U/L Alkaline Phosphatase (45-117) U/L Total Creatine Kinase (26-192) U/L CK-MB (CK-2) (0.5-3.6) ng/mL Troponin I (0.02-0.05) ng/mL C-Reactive Protein (0.00-0.30) mg/dL Total Protein (6.4-8.2) g/dL Total Protein (PEP) (6.4-8.2) gm/dL Albumin (3.4-5.0) g/dL Albumin (PEP) (3.50-5.00) gm/dL Albumin/Globulin Ratio (1.39-2.23) Pueyr-4-Fnoprbegz (0.11-0.29) gm/dL Fgpvj-7-Uxagfcxlf (0.22-1.00) gm/dL Beta Globulins (0.53-1.03) gm/dL Gamma Globulins (0.50-1.39) gm/dL Triglycerides (42-150) mg/dL Cholesterol (120-200) mg/dL LDL Cholesterol, Calc (0-99) mg/dL HDL Cholesterol (40.0-60.0) mg/dL Cholesterol/HDL Ratio Ratio Vitamin B12 (193-986) pg/mL TSH (0.358-3.740) uIU/mL Free T4 (0.76-1.46) ng/dL Urine Color (Yellw/Straw) Urine Clarity (Clear) Urine pH (5.0-8.5) Ur Specific [place] (1.002-1.035) Urine Protein (Neg-Trace) mg/dL Urine Glucose (UA) (Negative) mg/dL Urine Ketones (Negative) mg/dL Urine Occult Blood (Negative) Urine Nitrate (Negative) Urine Bilirubin (Negative) Urine Urobilinogen (Less than 2) mg/dL Ur Leukocyte Esterase (Negative) Urine RBC (0-3) /hpf Urine WBC (0-5) /hpf Ur Squamous Epith Cells (0-5) /hpf Micro UA Comment Ur Microscopic Review Urine Culture Comments JOSLYN Screen (Neg) RPR (Nonreactive) Blood Type Antibody Screen 06/18/18 Range/Units 11:30 WBC (4.0-11.0) th/mm3 RBC (4.00-5.30) mil/mm3 Hgb (11.6-15.3) gm/dL Hct (35.0-46.0) % MCV (80.0-100.0) fL MCH (27.0-34.0) pg MCHC (32.0-36.0) % RDW (11.6-17.2) % Plt Count (150-450) th/mm3 MPV (7.0-11.0) fL Neut % (Auto) (16.0-70.0) % Lymph % (Auto) (9.0-44.0) % Mccreary % (Auto) (0.0-8.0) % Eos % (Auto) (0.0-4.0) % Baso % (Auto) (0.0-2.0) % Neut # (Auto) (1.8-7.7) th/mm3 Lymph # (Auto) (1.0-4.8) th/mm3 Mccreary # (Auto) (0.0-0.9) th/mm3 Eos # (Auto) (0.0-0.4) th/mm3 Baso # (Auto) (0.0-0.2) th/mm3 WBC Differential Differential Comment ESR (0-30) mm/hr PT (9.8-11.6) sec INR Ratio APTT (24.3-30.1) sec Sodium (136-145) meq/L Potassium (3.5-5.1) meq/L Chloride (98-107) meq/L Carbon Dioxide (21.0-32.0) meq/L Anion Gap (5-15) meq/L BUN (7-18) mg/dL Creatinine (0.50-1.00) mg/dL Estimated GFR (>89) mL/min POC Glucose 313 H (68-110) mg/dl Random Glucose (74-106) mg/dL Hemoglobin A1c (4.3-6.0) % Calcium (8.5-10.1) mg/dL Total Bilirubin (0.2-1.0) mg/dL AST (15-37) U/L ALT (10-53) U/L Alkaline Phosphatase (45-117) U/L Total Creatine Kinase (26-192) U/L CK-MB (CK-2) (0.5-3.6) ng/mL Troponin I (0.02-0.05) ng/mL C-Reactive Protein (0.00-0.30) mg/dL Total Protein (6.4-8.2) g/dL Total Protein (PEP) (6.4-8.2) gm/dL Albumin (3.4-5.0) g/dL Albumin (PEP) (3.50-5.00) gm/dL Albumin/Globulin Ratio (1.39-2.23) Bhaiw-8-Iqslptiuv (0.11-0.29) gm/dL Bscbe-7-Gsyiyuxqu (0.22-1.00) gm/dL Beta Globulins (0.53-1.03) gm/dL Gamma Globulins (0.50-1.39) gm/dL Triglycerides (42-150) mg/dL Cholesterol (120-200) mg/dL LDL Cholesterol, Calc (0-99) mg/dL HDL Cholesterol (40.0-60.0) mg/dL Cholesterol/HDL Ratio Ratio Vitamin B12 (193-986) pg/mL TSH (0.358-3.740) uIU/mL Free T4 (0.76-1.46) ng/dL Urine Color (Yellw/Straw) Urine Clarity (Clear) Urine pH (5.0-8.5) Ur Specific [place] (1.002-1.035) Urine Protein (Neg-Trace) mg/dL Urine Glucose (UA) (Negative) mg/dL Urine Ketones (Negative) mg/dL Urine Occult Blood (Negative) Urine Nitrate (Negative) Urine Bilirubin (Negative) Urine Urobilinogen (Less than 2) mg/dL Ur Leukocyte Esterase (Negative) Urine RBC (0-3) /hpf Urine WBC (0-5) /hpf Ur Squamous Epith Cells (0-5) /hpf Micro UA Comment Ur Microscopic Review Urine Culture Comments JOSLYN Screen (Neg) RPR (Nonreactive) Blood Type Antibody Screen Imaging Data Radiologist's impression: Head CT 06/14/18 17:45 CONCLUSION: Slight chronic small vessel ischemic and atrophic changes. . Head CTA 06/14/18 17:45 CONCLUSION: 1. Significantly diminished flow is identified within the internal carotid artery in the carotid siphon on portion with multiple tiny tortuous blood vessels identified supraclinoid bilaterally worse on the left. Findings are most likely from a chronic occlusion, however an acute thrombus is difficult to exclude and a clear filling defect is not visualized based on this examination. Neck CTA 06/14/18 17:45 CONCLUSION: Abnormal appearance to the distal portions of both internal carotid arteries within the petrous apex and the left internal carotid artery prior to the petrous apex demonstrates high-grade stenosis in what appears to be smooth wall thickening of this vessel. Possibility of dissection of the petrous apex portion of the internal carotid artery should be entertained. Chest X-Ray 06/14/18 17:46 CONCLUSION: No acute cardiopulmonary disease. Head MRI 06/15/18 00:00 CONCLUSION: 1. Evidence of signal abnormality within the right parietal periventricular and subcortical white matter on the diffusion-weighted images indicating probable acute/subacute infarct. Clinical correlation is recommended. No acute hemorrhage is noted. No midline shift is noted. 2. Mild periventricular and subcortical white matter small vessel ischemic changes are noted bilaterally. Lumbar Spine MRI 06/15/18 00:00 CONCLUSION: 1. Unremarkable MRI of the lumbar spine without compression fracture, spinal stenosis, focal disc herniation or neuroforaminal narrowing. ECG Data Attestation: I personally reviewed and interpreted this ECG as follows: Interpretation: She had an EKG done on arrival that shows a sinus rhythm heart rate of 83, QRS duration is 81 ms, QTC [address] segment elevation is noted. T waves are flattened in aVL, downsloping ST segments and V5. No other acute abnormality is noted. Discharge Plan Discharge Disposition Patient Disposition: 30 Still Patient Discharge Condition Condition: Serious Discharge Order Discharge Orders: Discharge Order (Routine); Ordered 06/18/18 Ordered By: Juan Jose Martin Discharge Details Diagnosis: Neurologic abnormality, Stenosis of left internal carotid artery Physicians Team ED Provider: Cary Martinez Primary Care Provider: Elvie Walsh Attending Provider: Juan Jose Martin Other Providers: Diane Awan ; Kerry Santizo ; Ranjit Joseph Status ED Status: Left Department Discharge Information Discharge Date/Time: 06/14/18 23:38
--- NOTE | 2018-06-14 18:04 | XR ---
EXAM DATE: 06/14/2018 6:02 PM EDT AGE/SEX: 63 years / Female INDICATIONS: Palpitations and dizziness. CLINICAL DATA: This is the patient's initial encounter. Patient reports that signs and symptoms have been present for 1 day and indicates a pain score of 0/10. MEDICAL/SURGICAL HISTORY: Stroke. None. COMPARISON: No prior exams available for comparison. FINDINGS: The lungs are clear without infiltrate, nodule, or mass. There is no appreciable pleural effusion for technique. Heart and mediastinum are unremarkable. CONCLUSION: No acute cardiopulmonary disease. Electronically signed by: Cassandra Scruggs MD 06/14/2018 6:03 PM EDT
[2018-06-14 18:05] LABS: Bilirubin,Urine Negative (Negative); Clarity,Urine Clear (Clear); Color,Urine Straw (Yellw/Straw); Glucose,Urine (UA) 500 or Greater mg/dL (Negative); Leukocyte Esterase,Urine Negative (Negative); Nitrite,Urine Negative (Negative); Specific Gravity,Urine 1.029 (1.002-1.035); Squamous Epithelial Cell,Urine 1 /hpf (0-5)
[2018-06-14 18:24] LABS: Alanine Aminotransferase 22 U/L (10-53); Albumin 3.5 g/dL (3.4-5.0); Alkaline Phosphatase 110 U/L (45-117); Anion Gap 8 meq/L (5-15); Aspartate Aminotransferase 32 U/L (15-37); Blood Urea Nitrogen 15 mg/dL (7-18); Calcium 9.1 mg/dL (8.5-10.1); Carbon Dioxide 25.5 meq/L (21.0-32.0); Chloride 108 meq/L (98-107); Creatine Kinase 189 U/L (26-192); Glomerular Filtration Rate 77 mL/min (>89); Glucose,Random 266 mg/dL (74-106); Potassium 4.8 meq/L (3.5-5.1); Sodium 141 meq/L (136-145); Total Protein 8.2 g/dL (6.4-8.2)
[2018-06-14 18:37] LABS: Creatine Kinase MB 1.1 ng/mL (0.5-3.6)
[2018-06-14 19:01] LABS: Activated Partial Thrombo Time 21.7 sec (24.3-30.1); INR 0.9 Ratio; Prothrombin Time 9.5 sec (9.8-11.6)
[2018-06-14 19:14] LABS: Baso % (Auto) 0.5 % (0.0-2.0); Eos # (Auto) 0.1 th/mm3 (0.0-0.4); Eos % (Auto) 1.8 % (0.0-4.0); Hematocrit 33.7 % (35.0-46.0); Hemoglobin 10.7 gm/dL (11.6-15.3); Lymph # (Auto) 2.9 th/mm3 (1.0-4.8); Lymph % (Auto) 35.1 % (9.0-44.0); Mean Corpuscular HGB Conc 31.9 % (32.0-36.0); Mean Corpuscular Hemoglobin 24.3 pg (27.0-34.0); Mean Corpuscular Volume 76.3 fL (80.0-100.0); Mean Platelet Volume 8.7 fL (7.0-11.0); Mono # (Auto) 0.5 th/mm3 (0.0-0.9); Mono % (Auto) 6.3 % (0.0-8.0); Neut # (Auto) 4.6 th/mm3 (1.8-7.7); Neut % (Auto) 56.3 % (16.0-70.0); Platelet Count 394 th/mm3 (150-450); Red Blood Count 4.42 mil/mm3 (4.00-5.30); Red Cell Distribution Width 15.6 % (11.6-17.2); White Blood Count 8.2 th/mm3 (4.0-11.0)
--- NOTE | 2018-06-14 19:15 | CT ---
EXAM DATE: 06/14/2018 7:08 PM EDT AGE/SEX: 63 years / Female INDICATIONS: Left sided weakness. Blurred vision. CLINICAL DATA: This is the patient's initial encounter. Patient reports that signs and symptoms have been present for 1 day and indicates a pain score of 1/10. MEDICAL/SURGICAL HISTORY: Diabetes. Cholecystectomy. RADIATION DOSE: 31.74 CTDI (mGy) COMPARISON: [facility], MR BRAIN W AND W/O CONTRAST, 05/20/2018. . TECHNIQUE: CT of the head without contrast. Using automated exposure control and adjustment of the mA and/or kV according to patient size, radiation dose was kept as low as reasonably achievable to ob tain optimal diagnostic quality images. DICOM format image data is available electronically for revi ew and comparison. FINDINGS: There is no evidence for intracranial hemorrhage, mass effect, mass lesions, or edema. The visualize d bony structures appear intact. Slight degree of brain atrophy is seen. Slight periventricular whit e matter changes are seen nonspecific mostly consistent with chronic small vessel ischemic changes. There are no signs of acute infarction for technique. CONCLUSION: Slight chronic small vessel ischemic and atrophic changes. . Electronically signed by: Cassandra Scruggs MD 06/14/2018 7:14 PM EDT
--- NOTE | 2018-06-14 19:31 | CT ---
EXAM DATE: 06/14/2018 7:18 PM EDT AGE/SEX: 63 years / Female INDICATIONS: Left sided weakness. Blurred vision. CLINICAL DATA: This is the patient's initial encounter. Patient reports that signs and symptoms have been present for 1 day and indicates a pain score of 1/10. MEDICAL/SURGICAL HISTORY: Diabetes. Cholecystectomy. RADIATION DOSE: 27.41 CTDI (mGy) COMPARISON: [facility], MRA HEAD ([facility]), 06/11/2018. . TECHNIQUE: Volumetric scanning was performed using a multi-row detector CT scanner during bolus infu kasey of 80 ml Omnipaque 350 (iohexol) nonionic water-soluble contrast as a single exam dose. The d kimberlee was post processed with a variety of visualization algorithms including full volume maximum inten sity projection, multi-planar sliding thin slab reformation, curved planar reformation, and surface r endering techniques. Using automated exposure control and adjustment of the mA and/or kV according t o patient size, radiation dose was kept as low as reasonably achievable to obtain optimal diagnostic quality images. DICOM format image data is available electronically for review and comparison. FINDINGS: The vertebral basilar system appear intact. There is significantly diminished flow within bilateral i nternal carotid arteries within the carotid siphon. A normal left M1 branch is not visualized and the re are multiple tiny tortuous blood vessels at this site indicating probably a chronically occluded l eft M1 branch which reconstitutes distally. A definite filling defect or blood clot is difficult to e xclude at this time. The right side also does not demonstrate a normal M1 although part of it distall y appears to be reconstituted. Multiple tiny tortuous blood vessels are also seen in the region of th e origin of both anterior cerebral arteries. CONCLUSION: 1. Significantly diminished flow is identified within the internal carotid artery in the carotid sip hon on portion with multiple tiny tortuous blood vessels identified supraclinoid bilaterally worse on the left. Findings are most likely from a chronic occlusion, however an acute thrombus is difficult to exclude and a clear filling defect is not visualized based on this examination. Electronically signed by: Cassandra Scruggs MD 06/14/2018 7:30 PM EDT
--- NOTE | 2018-06-14 19:54 | CT ---
EXAM DATE: 06/14/2018 7:36 PM EDT AGE/SEX: 63 years / Female INDICATIONS: Left sided weakness. Blurred vision. CLINICAL DATA: This is the patient's initial encounter. Patient reports that signs and symptoms have been present for 1 day and indicates a pain score of 1/10. MEDICAL/SURGICAL HISTORY: Diabetes. Cholecystectomy. RADIATION DOSE: 27.41 CTDI (mGy) ; Combined studies COMPARISON: No prior exams available for comparison. TECHNIQUE: Volumetric scanning was performed using a multirow detector CT scanner during bolus infus ion of 80 ml Omnipaque 350 (iohexol) nonionic water-soluble contrast as a cumulative dose for multip le exams. The data was postprocessed with a variety of visualization algorithms including full-volu me maximum intensity projection, multiplanar sliding thin-slab reformation, curved-planar reformation , and surface-rendering techniques. Using automated exposure control and adjustment of the mA and/or kV according to patient size, radiation dose was kept as low as reasonably achievable to obtain opti mal diagnostic quality images. DICOM format image data is available electronically for review and co mparison. Percent stenosis is calculated using the diameter of the stenotic region over the diameter of the nor mal distal internal carotid artery. FINDINGS: The takeoff of the major vessels from the arch appear intact. The origin of the left internal coronar y artery appears intact, however distally prior to the petrous portion of the left internal carotid a rtery there is smooth narrowing of this vessel by almost 90%. Additionally there are areas of irregul ar narrowing within the petrous portion of the internal carotid artery. The right internal carotid ar aissatou takeoff appears intact and distally through the petrous apex demonstrates very mild areas of sonam ewhat beaded appearance to the wall of this vessel. The vertebral arteries appear intact. CONCLUSION: Abnormal appearance to the distal portions of both internal carotid arteries within the petrous apex and the left internal carotid artery prior to the petrous apex demonstrates high-grade stenosis in wh at appears to be smooth wall thickening of this vessel. Possibility of dissection of the petrous apex portion of the internal carotid artery should be entertained. Electronically signed by: Cassandra Scruggs MD 06/14/2018 7:53 PM EDT
[2018-06-14] MEDS ORDERED: Dextrose 50% in Water 50 ML Vial IV.PUSH PRN (21:31)
[2018-06-14] MEDS ORDERED: Labetalol HCl Inj 100 MG/20 ML Vial IV.PUSH PRN (21:35)
--- NOTE | 2018-06-14 21:48 | ECG ---
Date Performed: 06/14/2018 Time Performed: 18:25:18 PTAGE: 63 years EKG: Sinus rhythm NONSPECIFIC T-WAVE ABNORMALITY BORDERLINE ECG PREVIOUS TRACING : 11/15/2014 15.45 Compared to previous tracing, nonspecific T wave changes ar e now present. DOCTOR: Adryan Ng Interpretating Date/Time 06/14/2018 21:46:52
--- NOTE | 2018-06-14 22:17 | P.HP ---
History of Present Illness Service: [facility] Primary Care Physician: Elvie Walsh MD History of Present Illness: 63-year-old female with a past medical history significant for previous CVA, diabetes mellitus and hypertension presents the emergency department for the evaluation of intermittent left-sided weakness and numbness/tingling of her face. The patient reports for the past 3-4 months she has been having left- sided upper and lower extremity weakness. Symptoms occur intermittently and she will lose her balance or drop objects. The patient has been seen by Dr. Cortez as an outpatient and had an MRI which showed a history of a previous stroke that likely occurred in early May. She had an outpatient MRA done on Thursday. Head and neck CTA significant for chronic occlusion of the internal carotid arteries. The patient reports that this morning she had a burning/ tingling sensation on her face surrounding both of her eyes. She denies any changes in vision. Endorses associated headache. She reports her symptoms have improved since her arrival in the emergency department. She denies any chest pain or shortness of breath. No abdominal pain. No nausea/vomiting/ diarrhea. No fever/chills. Inpatient Certification: I certify that the inpatient services were ordered in accordance with Medicare regulations governing the order. This includes certification that hospital inpatient services are reasonable and necessary and in the case of services not specified as inpatient-only under 42 CFR 419.22(n), that they are appropriately provided as inpatient services in accordance to with the 2-midnight benchmark under 43 CFR 412.3(e) Estimated Total Length of Stay (Days): 3 Plans for Post Hospital Care: Not yet determined Review of Systems All other systems reviewed negative except as stated in [facility] - History History Provided By: Patient - Medical History Medical History: Medical History (Last Updated 06/14/18 @ 22:10 by Tamara Jaimes MD) Diabetes History of CVA (cerebrovascular accident) Hypertension - Surgical History Surgical History: Surgical History (Last Updated 06/14/18 @ 22:10 by Tamara Jaimes MD) History of cholecystectomy S/P DONYA-BSO - Family History Family History: Family History (Last Updated 06/14/18 @ 22:10 by Tamara Jaimes MD) Other Diabetes mellitus - Tobacco History Second Hand Smoke Exposure: No Smoking Status: Never smoker - Alcohol History How Often Do You Have a Drink Containing Alcohol: Never - Substance Use History Substance History: No History of Abuse - Travel History Recent Travel in the [place] Within the Last 8 Weeks: No Recent Travel Out of the Country Within the Last 8 Weeks: No - Immunization History Tetanus Immunization: >5 Years Hx Influenza Vaccine This Season: No Medications and Allergies Active Medications: Active Medications Atorvastatin Calcium (Lipitor) 10 mg PO DAILY [facility] Dextrose (D50w Vial) 50 ml IV.PUSH UNSCH PRN PRN Reason: PER HYPOGLYCEMIA PROTOCOL Glucagon (Glucagon Inj) 1 mg OTHER PRN PRN PRN Reason: for Hypoglycemia Protocol Sodium Chloride (Ns Inj) 1,000 mls @ 70 mls/hr IV.CONT .[id number] [facility] Stop: 06/15/18 08:02 Last Admin: 06/14/18 19:31 Dose: 70 mls/hr Heparin Sodium/Dextrose (Heparin/D5w 25,000 U/250 Ml) 25,000 unit in 250 mls @ 12 mls/hr IV.CONT TITRATE PRN; Protocol PRN Reason: Per Protocol Sodium Chloride (Ns Inj) 1,000 mls @ 70 mls/hr IV.CONT .[id number] [facility] Insulin Aspart (Novolog Insulin Correctional Sugar Inj) 0 unit SQ ACHS AND 3AM KEVIN; Protocol Labetalol HCl (Trandate Inj) 10 mg IV.PUSH Q2H PRN PRN Reason: For SBP > 200 or DBP > 100 Lisinopril (Prinivil) 5 mg PO DAILY [facility] Pat Own Med: Levothyroxine ( Tirosint) 50 Mcg Capsule 0 each PO DAILY@0600 [facility] Sodium Chloride (Ns Flush) 2 ml IV.FLUSH PRN PRN PRN Reason: FLUSH AFTER USING IV ACCESS Sodium Chloride (Ns Flush) 2 ml IV.FLUSH BID [facility] Sodium Chloride (Ns Flush) 2 ml IV.FLUSH PRN PRN PRN Reason: FLUSH AFTER USING IV ACCESS Allergies Allergy/AdvReac Type Severity Reaction Status Date / Time aspirin Allergy Severe Unverified 05/26/17 16:43 codeine Allergy Severe Nausea/Vomi Unverified 05/26/17 16:43 ting diclofenac Allergy Severe Unverified 05/26/17 16:43 etodolac Allergy Severe Unverified 05/26/17 16:43 flurbiprofen Allergy Severe Unverified 05/26/17 16:43 ibuprofen Allergy Severe Unverified 05/26/17 16:43 indomethacin Allergy Severe Unverified 05/26/17 16:43 ketoprofen Allergy Severe Unverified 05/26/17 16:43 ketorolac Allergy Severe Unverified 05/26/17 16:43 naproxen Allergy Severe Unverified 05/26/17 16:43 oxaprozin Allergy Severe Unverified 05/26/17 16:43 penicillin G Allergy Severe Unverified 05/26/17 16:43 *MDRO Multi-Drug Resistant AdvReac Unknown Uncoded 11/23/14 10:27 Organism Home Medications Medication Instructions Recorded Confirmed Type atorvastatin 10 mg PO DAILY 06/14/18 06/14/18 History empagliflozin-metformin [Synjardy] 1 tab PO BID 06/14/18 06/14/18 History insulin glargine-lixisenatide 24 unit HS 06/14/18 06/14/18 History [Soliqua 100/33] levothyroxine 50 mcg PO DAILY 06/14/18 06/14/18 History lisinopril 5 mg PO DAILY 06/14/18 06/14/18 History Exam Vital signs: Vital Signs 06/14/18 17:26 06/14/18 17:48 06/14/18 21:53 Temperature 98 F Pulse Rate 100 H 88 Respiratory Rate 16 18 Blood Pressure 197/86 H 170/68 H Pulse Oximetry 99 98 99 Intake & Output 06/14/18 06/14/18 06/15/18 06:59 18:59 06:59 Weight 104.8 kg Narrative: Gen.: No acute distress Head: Normocephalic. Atraumatic. EENT: Pupils equal round and reactive to light. Nose without drainage. Airway intact. Throat without injection. Cardiovascular: Regular rate and rhythm. No murmurs, rubs or gallops. Respiratory: Lungs clear to auscultation bilaterally. No wheezes or rhonchi. Abdomen: Soft, nontender, nondistended. No peritoneal signs. Musculoskeletal: No gross deformities. No edema. Skin: No obvious rashes or erythema. Neuro: Sensory intact. Cranial nerves II through XII intact. Strength 5/5 throughout. Results - Labs CBC & Chem 7: 06/14/18 18:30 06/14/18 17:53 Labs: Laboratory Results - last 24 hr 06/14/18 06/14/18 06/14/18 17:53 17:53 18:30 WBC 8.2 RBC 4.42 Hgb 10.7 L Hct 33.7 L MCV 76.3 L MCH 24.3 L MCHC 31.9 L RDW 15.6 Plt Count 394 MPV 8.7 Neut % (Auto) 56.3 Lymph % (Auto) 35.1 Mckenzie % (Auto) 6.3 Eos % (Auto) 1.8 Baso % (Auto) 0.5 Neut # (Auto) 4.6 Lymph # (Auto) 2.9 Mckenzie # (Auto) 0.5 Eos # (Auto) 0.1 Baso # (Auto) 0.0 WBC Differential . Differential Comment Auto diff final PT INR APTT Sodium 141 Potassium 4.8 Chloride 108 H Carbon Dioxide 25.5 Anion Gap 8 BUN 15 Creatinine 0.90 Estimated GFR 77 L Random Glucose 266 H Calcium 9.1 Total Bilirubin 0.4 AST 32 ALT 22 Alkaline Phosphatase 110 Total Creatine Kinase 189 CK-MB (CK-2) 1.1 Troponin I Less than 0.02 L Total Protein 8.2 Albumin 3.5 Urine Color Straw Urine Clarity Clear Urine pH 6.0 Ur Specific [place] 1.029 Urine Protein Negative Urine Glucose (UA) 500 or greater Urine Ketones Negative Urine Occult Blood Negative Urine Nitrate Negative Urine Bilirubin Negative Urine Urobilinogen Less than 2 Ur Leukocyte Esterase Negative Urine RBC 1 Urine WBC 1 Ur Squamous Epith Cells 1 Micro UA Comment Culture not ind Ur Microscopic Review Not Reportable Urine Culture Comments Culture not ind Blood Type Antibody Screen 06/14/18 06/14/18 18:30 18:30 WBC RBC Hgb Hct MCV MCH MCHC RDW Plt Count MPV Neut % (Auto) Lymph % (Auto) Mckenzie % (Auto) Eos % (Auto) Baso % (Auto) Neut # (Auto) Lymph # (Auto) Mckenzie # (Auto) Eos # (Auto) Baso # (Auto) WBC Differential Differential Comment PT 9.5 L INR 0.9 APTT 21.7 L Sodium Potassium Chloride Carbon Dioxide Anion Gap BUN Creatinine Estimated GFR Random Glucose Calcium Total Bilirubin AST ALT Alkaline Phosphatase Total Creatine Kinase CK-MB (CK-2) Troponin I Total Protein Albumin Urine Color Urine Clarity Urine pH Ur Specific [place] Urine Protein Urine Glucose (UA) Urine Ketones Urine Occult Blood Urine Nitrate Urine Bilirubin Urine Urobilinogen Ur Leukocyte Esterase Urine RBC Urine WBC Ur Squamous Epith Cells Micro UA Comment Ur Microscopic Review Urine Culture Comments Blood Type B Positive Antibody Screen Negative - Imaging Impressions Head CT 06/14/18 17:45 CONCLUSION: Slight chronic small vessel ischemic and atrophic changes. . Head CTA 06/14/18 17:45 CONCLUSION: 1. Significantly diminished flow is identified within the internal carotid artery in the carotid siphon on portion with multiple tiny tortuous blood vessels identified supraclinoid bilaterally worse on the left. Findings are most likely from a chronic occlusion, however an acute thrombus is difficult to exclude and a clear filling defect is not visualized based on this examination. Neck CTA 06/14/18 17:45 CONCLUSION: Abnormal appearance to the distal portions of both internal carotid arteries within the petrous apex and the left internal carotid artery prior to the petrous apex demonstrates high-grade stenosis in what appears to be smooth wall thickening of this vessel. Possibility of dissection of the petrous apex portion of the internal carotid artery should be entertained. Chest X-Ray 06/14/18 17:46 CONCLUSION: No acute cardiopulmonary disease. Caprini VTE Risk Assessment Caprini VTE Risk Assessment: Moderate/High Risk (score >= 2) Caprini Risk Assessment Model: Point Value = 1 Point Value = 2 Point Value = 3 Point Value = 5 Age 41-60 Minor surgery BMI > 25 kg/m2 Swollen legs Varicose veins or History of unexplained or recurrent spontaneous Oral contraceptives or hormone replacement Sepsis (< 1 month) Serious lung disease, including pneumonia (< 1 month) Abnormal pulmonary function Acute myocardial infarction Congestive heart failure (< 1 month) History of inflammatory bowel disease Medical patient at bed rest Age 61-74 Arthroscopic surgery Major open surgery (> 45 min) Laparoscopic surgery (> 45 min) Malignancy Confined to bed (> 72 hours) Immobilizing plaster cast Central venous access Age >= 75 History of VTE Family history of VTE Factor V Leiden Prothrombin [id number] Lupus anticoagulant Anticardiolipin antibodies Elevated serum homocysteine Heparin-induced thrombocytopenia Other congenital or acquired thrombophilia Stroke (< 1 month) Elective arthroplasty Hip, pelvis, or leg fracture Acute spinal cord injury (< 1 month) Prophylaxis Regimen: Total Risk Factor Score Risk Level Prophylaxis Regimen 0-1 Low Early ambulation 2 Moderate Order ONE of the following: *Sequential Compression Device (SCD) *Heparin 5000 units SQ BID 3-4 Higher Order ONE of the following medications: *Heparin 5000 units SQ TID *Enoxaparin/Lovenox 40 mg SQ daily (WT < 150 kg, CrCl > 30 mL/min) *Enoxaparin/Lovenox 30 mg SQ daily (WT < 150 kg, CrCl > 10-29 mL/min) *Enoxaparin/Lovenox 30 mg SQ BID (WT < 150 kg, CrCl > 30 mL/min) AND/OR *Sequential Compression Device (SCD) 5 or more Highest Order ONE of the following medications: *Heparin 5000 units SQ TID (Preferred with Epidurals) *Enoxaparin/Lovenox 40 mg SQ daily (WT < 150 kg, CrCl > 30 mL/min) *Enoxaparin/Lovenox 30 mg SQ daily (WT < 150 kg, CrCl > 10-29 mL/min) *Enoxaparin/Lovenox 30 mg SQ BID (WT < 150 kg, CrCl > 30 mL/min) AND *Sequential Compression Device (SCD) Assessment and Plan - Plan Assessment/plan: 1. Neurologic symptoms/CVA/carotid stenosis Head and neck CTA significant for chronic occlusion in the internal carotid arteries, left greater than right Neurology consulted, appreciate assistance Maintain blood pressure at 200/100 Heparin drip per protocol and neurology recommendations 2. Diabetes mellitus Sliding-scale insulin Monitor blood glucose 3. Hypertension Permissive hypertension per neurology Labetalol as needed Maintain blood pressure at 200/100 FEN N.p.o. Electrolytes: Monitor and replete as needed Heparin drip NS at 70 cc/hour
[2018-06-14] MEDS: Sod Chloride 0.9% Inj 1,000 ML IV.CONT SCH (23:28)
[2018-06-14] MEDS: Heparin Drip 25,000 UNIT/250 ML BAG IV.CONT PRN (23:29)
[2018-06-15] MEDS: Insulin NovoLOG Aspart Correctional Sugar Inj SQ SCH ×5 (03:21→20:18)
[2018-06-15 03:35] LABS: Hematocrit 31.6 % (35.0-46.0); Hemoglobin 10.7 gm/dL (11.6-15.3); Mean Corpuscular HGB Conc 33.9 % (32.0-36.0); Mean Corpuscular Hemoglobin 25.6 pg (27.0-34.0); Mean Corpuscular Volume 75.5 fL (80.0-100.0); Mean Platelet Volume 8.2 fL (7.0-11.0); Platelet Count 331 th/mm3 (150-450); Red Blood Count 4.19 mil/mm3 (4.00-5.30); Red Cell Distribution Width 15.4 % (11.6-17.2); White Blood Count 9.3 th/mm3 (4.0-11.0)
[2018-06-15 03:52] LABS: Chol/HDL Ratio 2.23 Ratio; HDL Cholesterol 63.1 mg/dL (40.0-60.0)
[2018-06-15] MEDS ORDERED: LEVOTHYROXINE 50 MCG PO SCH (06:00)
--- NOTE | 2018-06-15 07:58 | P.PNIM ---
Subjective Interval history: f/u; TIA in no acute distress. left-sided weakness has improved. has slight headache. no other complaints. Physical Exam Vital signs: Vital Signs 06/14/18 17:26 06/14/18 17:48 06/14/18 21:53 Temperature 98 F Pulse Rate 100 H 88 Respiratory Rate 16 18 Blood Pressure 197/86 H 170/68 H Pulse Oximetry 99 98 99 06/14/18 23:36 06/15/18 01:36 06/15/18 03:36 Temperature 98.3 F 98.5 F 98.5 F Pulse Rate 98 H 74 86 Respiratory Rate 20 18 18 Blood Pressure 167/74 H 192/84 H 189/83 H Pulse Oximetry 98 99 99 06/15/18 05:36 06/15/18 07:20 Temperature 98.6 F Pulse Rate 82 Respiratory Rate 20 Blood Pressure 182/77 H Pulse Oximetry 98 99 Intake & Output 06/14/18 06/15/18 06/15/18 18:59 06:59 18:59 Intake Total 560 / 560 Output Total 750 / 750 Balance -190 / -190 Weight 104.8 kg 105.5 kg Intake: IV 560 / 560 Heparin/D5W 25,000 U/250 mL 25, 86 / 86 000 unit In 250 ml @ Per Protocol 12 mls/hr IV.CONT TITRATE PRN Rx#:[id number] NS Inj 1,000 ML @ 70 mls/hr IV. 474 / 474 CONT .[id number] KEVIN Rx#:[id number] Output: Urine 750 / 750 Other: Date of Last Bowel Movement 06/14/18 - Constitutional no acute distress - Routine Respiratory Exam Present: CTA bilaterally - Routine Cardiovascular Exam Present: RRR - Routine Abdominal Exam Present: soft - Routine Extremities Exam Comments: no pedal edema. - Routine Neurological Exam Present: alert, oriented X3 Results - Labs CBC & Chem 7: 06/15/18 03:22 06/14/18 17:53 Laboratory Results - last 24 hr 06/14/18 06/14/18 06/14/18 17:53 17:53 18:30 WBC 8.2 RBC 4.42 Hgb 10.7 L Hct 33.7 L MCV 76.3 L MCH 24.3 L MCHC 31.9 L RDW 15.6 Plt Count 394 MPV 8.7 Neut % (Auto) 56.3 Lymph % (Auto) 35.1 Reynolds % (Auto) 6.3 Eos % (Auto) 1.8 Baso % (Auto) 0.5 Neut # (Auto) 4.6 Lymph # (Auto) 2.9 Reynolds # (Auto) 0.5 Eos # (Auto) 0.1 Baso # (Auto) 0.0 WBC Differential . Differential Comment Auto diff final PT INR APTT Sodium 141 Potassium 4.8 Chloride 108 H Carbon Dioxide 25.5 Anion Gap 8 BUN 15 Creatinine 0.90 Estimated GFR 77 L POC Glucose Random Glucose 266 H Calcium 9.1 Total Bilirubin 0.4 AST 32 ALT 22 Alkaline Phosphatase 110 Total Creatine Kinase 189 CK-MB (CK-2) 1.1 Troponin I Less than 0.02 L Total Protein 8.2 Albumin 3.5 Triglycerides Cholesterol LDL Cholesterol, Calc HDL Cholesterol Cholesterol/HDL Ratio Urine Color Straw Urine Clarity Clear Urine pH 6.0 Ur Specific [place] 1.029 Urine Protein Negative Urine Glucose (UA) 500 or greater Urine Ketones Negative Urine Occult Blood Negative Urine Nitrate Negative Urine Bilirubin Negative Urine Urobilinogen Less than 2 Ur Leukocyte Esterase Negative Urine RBC 1 Urine WBC 1 Ur Squamous Epith Cells 1 Micro UA Comment Culture not ind Ur Microscopic Review Not Reportable Urine Culture Comments Culture not ind Blood Type Antibody Screen 06/14/18 06/14/18 06/15/18 18:30 18:30 03:12 WBC RBC Hgb Hct MCV MCH MCHC RDW Plt Count MPV Neut % (Auto) Lymph % (Auto) [place] % (Auto) Eos % (Auto) Baso % (Auto) Neut # (Auto) Lymph # (Auto) Reynolds # (Auto) Eos # (Auto) Baso # (Auto) WBC Differential Differential Comment PT 9.5 L INR 0.9 APTT 21.7 L Sodium Potassium Chloride Carbon Dioxide Anion Gap BUN Creatinine Estimated GFR POC Glucose 179 H Random Glucose Calcium Total Bilirubin AST ALT Alkaline Phosphatase Total Creatine Kinase CK-MB (CK-2) Troponin I Total Protein Albumin Triglycerides Cholesterol LDL Cholesterol, Calc HDL Cholesterol Cholesterol/HDL Ratio Urine Color Urine Clarity Urine pH Ur Specific [place] Urine Protein Urine Glucose (UA) Urine Ketones Urine Occult Blood Urine Nitrate Urine Bilirubin Urine Urobilinogen Ur Leukocyte Esterase Urine RBC Urine WBC Ur Squamous Epith Cells Micro UA Comment Ur Microscopic Review Urine Culture Comments Blood Type B Positive Antibody Screen Negative 09/04/18 09/04/18 09/04/18 03:22 03:22 03:22 WBC 9.3 RBC 4.19 Hgb 10.7 L Hct 31.6 L MCV 75.5 L MCH 25.6 L MCHC 33.9 RDW 15.4 Plt Count 331 MPV 8.2 Neut % (Auto) Lymph % (Auto) [place] % (Auto) Eos % (Auto) Baso % (Auto) Neut # (Auto) Lymph # (Auto) Reynolds # (Auto) Eos # (Auto) Baso # (Auto) WBC Differential Differential Comment PT INR APTT 37.3 H D Sodium Potassium Chloride Carbon Dioxide Anion Gap BUN Creatinine Estimated GFR POC Glucose Random Glucose Calcium Total Bilirubin AST ALT Alkaline Phosphatase Total Creatine Kinase CK-MB (CK-2) Troponin I Total Protein Albumin Triglycerides 110 Cholesterol 141 LDL Cholesterol, Calc 56 HDL Cholesterol 63.1 H Cholesterol/HDL Ratio 2.23 Urine Color Urine Clarity Urine pH Ur Specific [place] Urine Protein Urine Glucose (UA) Urine Ketones Urine Occult Blood Urine Nitrate Urine Bilirubin Urine Urobilinogen Ur Leukocyte Esterase Urine RBC Urine WBC Ur Squamous Epith Cells Micro UA Comment Ur Microscopic Review Urine Culture Comments Blood Type Antibody Screen - Imaging Impressions Head CT 06/14/18 17:45 CONCLUSION: Slight chronic small vessel ischemic and atrophic changes. . Head CTA 06/14/18 17:45 CONCLUSION: 1. Significantly diminished flow is identified within the internal carotid artery in the carotid siphon on portion with multiple tiny tortuous blood vessels identified supraclinoid bilaterally worse on the left. Findings are most likely from a chronic occlusion, however an acute thrombus is difficult to exclude and a clear filling defect is not visualized based on this examination. Neck CTA 06/14/18 17:45 CONCLUSION: Abnormal appearance to the distal portions of both internal carotid arteries within the petrous apex and the left internal carotid artery prior to the petrous apex demonstrates high-grade stenosis in what appears to be smooth wall thickening of this vessel. Possibility of dissection of the petrous apex portion of the internal carotid artery should be entertained. Chest X-Ray 06/14/18 17:46 CONCLUSION: No acute cardiopulmonary disease. Assessment and Plan - Plan 1. Neurologic symptoms/recent CVA/carotid stenosis Head and neck CTA significant for chronic occlusion in the internal carotid arteries, left greater than right Neurology consulted, appreciate assistance Maintain blood pressure at 200/100 Heparin drip per protocol and neurology recommendations 2. Diabetes mellitus Sliding-scale insulin Monitor blood glucose 3. Hypertension Permissive hypertension per neurology Labetalol as needed Maintain blood pressure at 200/100 FEN N.p.o. Electrolytes: Monitor and replete as needed Heparin drip NS at 70 cc/hour Discharge Planning: pending neurology recommendations/ PT evaluation.
[2018-06-15] MEDS ORDERED: Lisinopril 5 MG Tablet PO SCH (09:00)
--- NOTE | 2018-06-15 09:08 | P.CONNEU ---
History of Present Illness Service: Neurology Consult date: 06/15/18 Requesting Physician: Juan Jose Martin Reason for Consult: TIA Primary Care Provider: Elvie Walsh MD Chief Complaint: headache, left upper and lower extremity weakness History of Present Illness: 63 y/o female with hx of DM, had been seen last week by Dr. Cortez for intermittent left upper and lower extremity weakness and headache that had been going on for the last 3 months. She had MRI 05/20 by her PCP as there was concern of stroke at that time and MRA by Dr. Cortez 06/11. This showed possible occlusion. She had been on ASA 81mg and Plavix was added in the office to the ASA. She was told she would need CTA outpatient but if worsening or new symptoms to go to the ER. Yesterday she woke with headache and tingling involving her whole head. BP at home was 180/90s. She also noted increased weakness on the L upper and lower extremity. The weakness remained intermittent and was resolved by the time she got to the ER. She continues to note headache, worse upon waking. She had CTA head/neck done in the ER and was admitted for further work up. She has been started on a Heparin Drip. She notes she had been on lisinopril at home for kidney protection. She is on insulin for DM2 and also on a statin. No hx of abnormal heart beat. Review of Systems All other systems reviewed negative except as stated [facility] - History History Provided By: Patient - Medical History Medical History: Medical History (Last Updated 06/14/18 @ 22:10 by Tamara Jaimes MD) Diabetes History of CVA (cerebrovascular accident) Hypertension - Surgical History Surgical History: Surgical History (Last Updated 06/14/18 @ 22:10 by Tamara Jaimes MD) History of cholecystectomy S/P DONYA-BSO - Family History Family History: Family History (Last Updated 06/14/18 @ 22:10 by Tamara Jaimes MD) Other Diabetes mellitus - Tobacco History Second Hand Smoke Exposure: No Smoking Status: Never smoker - Alcohol History How Often Do You Have a Drink Containing Alcohol: Never - Substance Use History Substance History: No History of Abuse - Travel History Recent Travel in the [place] Within the Last 8 Weeks: No Recent Travel Out of the Country Within the Last 8 Weeks: No - Immunization History Tetanus Immunization: >5 Years Hx Influenza Vaccine This Season: No Medications and Allergies Allergies Allergy/AdvReac Type Severity Reaction Status Date / Time codeine Allergy Severe Nausea/Vomi Verified 06/15/18 11:55 ting diclofenac Allergy Severe Hives Verified 06/15/18 11:55 etodolac Allergy Severe Hives Verified 06/15/18 11:55 flurbiprofen Allergy Severe Hives Verified 06/15/18 11:55 ibuprofen Allergy Severe Hives Verified 06/15/18 11:55 indomethacin Allergy Severe Hives Verified 06/15/18 11:55 ketoprofen Allergy Severe Hives Verified 06/15/18 11:55 ketorolac Allergy Severe Hives Verified 06/15/18 11:55 naproxen Allergy Severe Hives Verified 06/15/18 11:55 oxaprozin Allergy Severe Hives Verified 06/15/18 11:55 penicillin G Allergy Severe Hives Verified 06/15/18 11:55 *MDRO Multi-Drug Resistant AdvReac Unknown Hives Uncoded 06/15/18 11:55 Organism Home Medications Medication Instructions Recorded Confirmed Type atorvastatin 10 mg PO DAILY 06/14/18 06/14/18 History empagliflozin-metformin [Synjardy] 1 tab PO BID 06/14/18 06/14/18 History insulin glargine-lixisenatide 24 unit HS 06/14/18 06/14/18 History [Soliqua 100/33] levothyroxine 50 mcg PO DAILY 06/14/18 06/14/18 History lisinopril 5 mg PO DAILY 06/14/18 06/14/18 History Active Medications: Active Medications Atorvastatin Calcium (Lipitor) 10 mg PO DAILY [facility] Last Admin: 06/15/18 08:40 Dose: 10 mg Dextrose (D50w Vial) 50 ml IV.PUSH UNSCH PRN PRN Reason: PER HYPOGLYCEMIA PROTOCOL Glucagon (Glucagon Inj) 1 mg OTHER PRN PRN PRN Reason: for Hypoglycemia Protocol Heparin Sodium/Dextrose (Heparin/D5w 25,000 U/250 Ml) 25,000 unit in 250 mls @ 12 mls/hr IV.CONT TITRATE PRN; Protocol PRN Reason: Per Protocol Last Titration: 06/15/18 06:49 Dose: 1,200 units/hr, 12 mls/hr Sodium Chloride (Ns Inj) 1,000 mls @ 70 mls/hr IV.CONT .[id number] [facility] Last Infusion: 06/15/18 06:48 Dose: 70 mls/hr Insulin Aspart (Novolog Insulin Correctional Sugar Inj) 0 unit SQ ACHS AND 3AM KEVIN; Protocol Last Admin: 06/15/18 08:39 Dose: Not Given Labetalol HCl (Trandate Inj) 10 mg IV.PUSH Q2H PRN PRN Reason: For SBP > 220 or DBP > 110 Pat Own Med: Levothyroxine ( Tirosint) 50 Mcg Capsule 0 each PO DAILY@0600 [facility] Sodium Chloride (Ns Flush) 2 ml IV.FLUSH PRN PRN PRN Reason: FLUSH AFTER USING IV ACCESS Sodium Chloride (Ns Flush) 2 ml IV.FLUSH BID [facility] Last Admin: 06/15/18 08:40 Dose: Not Given Sodium Chloride (Ns Flush) 2 ml IV.FLUSH PRN PRN PRN Reason: FLUSH AFTER USING IV ACCESS Exam Vital signs: Vital Signs 06/14/18 17:26 06/14/18 17:48 06/14/18 21:53 Temperature 98 F Pulse Rate 100 H 88 Respiratory Rate 16 18 Blood Pressure 197/86 H 170/68 H Pulse Oximetry 99 98 99 06/14/18 23:36 06/15/18 01:36 06/15/18 03:36 Temperature 98.3 F 98.5 F 98.5 F Pulse Rate 98 H 74 86 Respiratory Rate 20 18 18 Blood Pressure 167/74 H 192/84 H 189/83 H Pulse Oximetry 98 99 99 06/15/18 05:36 06/15/18 07:20 Temperature 98.6 F Pulse Rate 82 Respiratory Rate 20 Blood Pressure 182/77 H Pulse Oximetry 98 99 Intake & Output 06/14/18 06/15/18 06/15/18 18:59 06:59 18:59 Intake Total 560 / 560 Output Total 750 / 750 Balance -190 / -190 Weight 104.8 kg 105.5 kg Intake: IV 560 / 560 Heparin/D5W 25,000 U/250 mL 25, 86 / 86 000 unit In 250 ml @ Per Protocol 12 mls/hr IV.CONT TITRATE PRN Rx#:[id number] NS Inj 1,000 ML @ 70 mls/hr IV. 474 / 474 CONT .[id number] [facility] Rx#:[id number] Output: Urine 750 / 750 Other: Date of Last Bowel Movement 06/14/18 - Constitutional no acute distress - Routine HEENT Exam Head: Present: normocephalic Eye: Present: EOMI, PERRL - Routine Neck Exam Absent: carotid bruit - Routine Cardiovascular Exam Present: RRR - Routine Neurological Exam Present: alert, oriented X3, CN II-XII intact, normal reflexes, normal tone, normal speech. Absent: pronator drift, facial asymmetry, tremors alert and orient x 3 II-XII intact, PERRL, EOMi, no facial asymmetry, no temporal artery tenderness motor- moving all extremities against gravity, mild weakness in left lower extremity, admission nurse coordinator on left weaker than right, leg lag on the left compared to right , no drift, tone normal sensory- normal to temp except for left lower extremity, normal to vibration ramon LE cerebellar- f-n-f intact, no ataxia coordination intact gait - withheld speech- normal, no dysarthria no tremors Results - Labs CBC & Chem 7: 06/15/18 03:22 06/14/18 17:53 Labs: Laboratory Results - last 24 hr 06/14/18 06/14/18 06/14/18 17:53 17:53 18:30 WBC 8.2 RBC 4.42 Hgb 10.7 L Hct 33.7 L MCV 76.3 L MCH 24.3 L MCHC 31.9 L RDW 15.6 Plt Count 394 MPV 8.7 Neut % (Auto) 56.3 Lymph % (Auto) 35.1 [place] % (Auto) 6.3 Eos % (Auto) 1.8 Baso % (Auto) 0.5 Neut # (Auto) 4.6 Lymph # (Auto) 2.9 [place] # (Auto) 0.5 Eos # (Auto) 0.1 Baso # (Auto) 0.0 WBC Differential . Differential Comment Auto diff final PT INR APTT Sodium 141 Potassium 4.8 Chloride 108 H Carbon Dioxide 25.5 Anion Gap 8 BUN 15 Creatinine 0.90 Estimated GFR 77 L POC Glucose Random Glucose 266 H Calcium 9.1 Total Bilirubin 0.4 AST 32 ALT 22 Alkaline Phosphatase 110 Total Creatine Kinase 189 CK-MB (CK-2) 1.1 Troponin I Less than 0.02 L Total Protein 8.2 Albumin 3.5 Triglycerides Cholesterol LDL Cholesterol, Calc HDL Cholesterol Cholesterol/HDL Ratio Urine Color Straw Urine Clarity Clear Urine pH 6.0 Ur Specific [place] 1.029 Urine Protein Negative Urine Glucose (UA) 500 or greater Urine Ketones Negative Urine Occult Blood Negative Urine Nitrate Negative Urine Bilirubin Negative Urine Urobilinogen Less than 2 Ur Leukocyte Esterase Negative Urine RBC 1 Urine WBC 1 Ur Squamous Epith Cells 1 Micro UA Comment Culture not ind Ur Microscopic Review Not Reportable Urine Culture Comments Culture not ind Blood Type Antibody Screen 06/14/18 06/14/18 06/15/18 18:30 18:30 03:12 WBC RBC Hgb Hct MCV MCH MCHC RDW Plt Count MPV Neut % (Auto) Lymph % (Auto) [place] % (Auto) Eos % (Auto) Baso % (Auto) Neut # (Auto) Lymph # (Auto) [place] # (Auto) Eos # (Auto) Baso # (Auto) WBC Differential Differential Comment PT 9.5 L INR 0.9 APTT 21.7 L Sodium Potassium Chloride Carbon Dioxide Anion Gap BUN Creatinine Estimated GFR POC Glucose 179 H Random Glucose Calcium Total Bilirubin AST ALT Alkaline Phosphatase Total Creatine Kinase CK-MB (CK-2) Troponin I Total Protein Albumin Triglycerides Cholesterol LDL Cholesterol, Calc HDL Cholesterol Cholesterol/HDL Ratio Urine Color Urine Clarity Urine pH Ur Specific [place] Urine Protein Urine Glucose (UA) Urine Ketones Urine Occult Blood Urine Nitrate Urine Bilirubin Urine Urobilinogen Ur Leukocyte Esterase Urine RBC Urine WBC Ur Squamous Epith Cells Micro UA Comment Ur Microscopic Review Urine Culture Comments Blood Type B Positive Antibody Screen Negative 06/15/18 06/15/18 06/15/18 03:22 03:22 03:22 WBC 9.3 RBC 4.19 Hgb 10.7 L Hct 31.6 L MCV 75.5 L MCH 25.6 L MCHC 33.9 RDW 15.4 Plt Count 331 MPV 8.2 Neut % (Auto) Lymph % (Auto) [place] % (Auto) Eos % (Auto) Baso % (Auto) Neut # (Auto) Lymph # (Auto) [place] # (Auto) Eos # (Auto) Baso # (Auto) WBC Differential Differential Comment PT INR APTT 37.3 H D Sodium Potassium Chloride Carbon Dioxide Anion Gap BUN Creatinine Estimated GFR POC Glucose Random Glucose Calcium Total Bilirubin AST ALT Alkaline Phosphatase Total Creatine Kinase CK-MB (CK-2) Troponin I Total Protein Albumin Triglycerides 110 Cholesterol 141 LDL Cholesterol, Calc 56 HDL Cholesterol 63.1 H Cholesterol/HDL Ratio 2.23 Urine Color Urine Clarity Urine pH Ur Specific [place] Urine Protein Urine Glucose (UA) Urine Ketones Urine Occult Blood Urine Nitrate Urine Bilirubin Urine Urobilinogen Ur Leukocyte Esterase Urine RBC Urine WBC Ur Squamous Epith Cells Micro UA Comment Ur Microscopic Review Urine Culture Comments Blood Type Antibody Screen 06/15/18 08:01 WBC RBC Hgb Hct MCV MCH MCHC RDW Plt Count MPV Neut % (Auto) Lymph % (Auto) [place] % (Auto) Eos % (Auto) Baso % (Auto) Neut # (Auto) Lymph # (Auto) [place] # (Auto) Eos # (Auto) Baso # (Auto) WBC Differential Differential Comment PT INR APTT Sodium Potassium Chloride Carbon Dioxide Anion Gap BUN Creatinine Estimated GFR POC Glucose 157 H Random Glucose Calcium Total Bilirubin AST ALT Alkaline Phosphatase Total Creatine Kinase CK-MB (CK-2) Troponin I Total Protein Albumin Triglycerides Cholesterol LDL Cholesterol, Calc HDL Cholesterol Cholesterol/HDL Ratio Urine Color Urine Clarity Urine pH Ur Specific [place] Urine Protein Urine Glucose (UA) Urine Ketones Urine Occult Blood Urine Nitrate Urine Bilirubin Urine Urobilinogen Ur Leukocyte Esterase Urine RBC Urine WBC Ur Squamous Epith Cells Micro UA Comment Ur Microscopic Review Urine Culture Comments Blood Type Antibody Screen - Imaging Impressions Head CT 06/14/18 17:45 CONCLUSION: Slight chronic small vessel ischemic and atrophic changes. . Head CTA 06/14/18 17:45 CONCLUSION: 1. Significantly diminished flow is identified within the internal carotid artery in the carotid siphon on portion with multiple tiny tortuous blood vessels identified supraclinoid bilaterally worse on the left. Findings are most likely from a chronic occlusion, however an acute thrombus is difficult to exclude and a clear filling defect is not visualized based on this examination. Neck CTA 06/14/18 17:45 CONCLUSION: Abnormal appearance to the distal portions of both internal carotid arteries within the petrous apex and the left internal carotid artery prior to the petrous apex demonstrates high-grade stenosis in what appears to be smooth wall thickening of this vessel. Possibility of dissection of the petrous apex portion of the internal carotid artery should be entertained. Chest X-Ray 06/14/18 17:46 CONCLUSION: No acute cardiopulmonary disease. Review/Management - Diagnosis (1) Neurologic abnormality Code(s): R29.818 - Other symptoms and signs involving the nervous system Status: Acute Current Visit: Yes (2) Stenosis of left internal carotid artery Code(s): I65.22 - Occlusion and stenosis of left carotid artery Status: Acute Current Visit: Yes - Review/Management Plan: Continue on Heparin Drip and permissive hypertension repeat MRI brain ECHO ESR/CRP HgbA1C- pending Lipids- LDL 56, continue statin Vascular consult for abnormal CTA head/neck pt had been on ASA and Plavix prior to admit Addendum pt seen examined with PA agree with workup cont heparin drip may need changed to po AC vascular consult mri brain/l/s spine. echo ok keep bp elevated for now per protocol.
--- NOTE | 2018-06-15 12:33 | P.CONVS ---
History of Present Illness Service: Cardiovascular Consult date: 06/15/18 Reason for Consult: Headache with episodes of L sided weakness/CTA Primary Care Provider: Elvie Babcock MD Chief Complaint: headache, left upper and lower extremity weakness History of Present Illness: Ms. Shea is a 63/F with a PMH of DM Pt c/o daily left sided headaches for 3M with intermittent LEFT sided weakness episodes lasting 30- 60 sec Pt stated that on Thursday she developed a "burning headache" frontal to occipital region that radiated to her eyes Pt has no prior hx of headache or CVA Review of Systems Eyes: Denies change in vision, Denies pain, Denies sensitivity to light Cardiovascular: Denies chest pain, Denies shortness of breath Gastrointestinal: Denies nausea, Denies vomiting Musculoskeletal: Reports muscle weakness (Left sided weakness (intermittent)) Neurologic: Reports headache(s) (Left sided ) PMFSH - History History Provided By: Patient - Medical History Medical History: Medical History (Last Reviewed 06/15/18 @ 12:53 by Juliana Albert) Diabetes History of CVA (cerebrovascular accident) Hypertension - Surgical History Surgical History: Surgical History (Last Reviewed 06/15/18 @ 12:53 by Juliana Albert) History of cholecystectomy S/P DONYA-BSO - Family History Family History: Family History (Last Reviewed 06/15/18 @ 12:53 by Juliana Albert) Other Diabetes mellitus - Tobacco History Second Hand Smoke Exposure: No Tobacco Use In Past 30 Days: No Smoking Status: Never smoker - Alcohol History How Often Do You Have a Drink Containing Alcohol: Never - Substance Use History Substance History: No History of Abuse - Travel History Recent Travel in the [facility] Within the Last 8 Weeks: No Recent Travel Out of the Country Within the Last 8 Weeks: No - Immunization History Tetanus Immunization: >5 Years Hx Influenza Vaccine This Season: No Medications and Allergies Allergies Allergy/AdvReac Type Severity Reaction Status Date / Time codeine Allergy Severe Nausea/Vomi Verified 06/15/18 11:55 ting diclofenac Allergy Severe Hives Verified 06/15/18 11:55 etodolac Allergy Severe Hives Verified 06/15/18 11:55 flurbiprofen Allergy Severe Hives Verified 06/15/18 11:55 ibuprofen Allergy Severe Hives Verified 06/15/18 11:55 indomethacin Allergy Severe Hives Verified 06/15/18 11:55 ketoprofen Allergy Severe Hives Verified 06/15/18 11:55 ketorolac Allergy Severe Hives Verified 06/15/18 11:55 naproxen Allergy Severe Hives Verified 06/15/18 11:55 oxaprozin Allergy Severe Hives Verified 06/15/18 11:55 penicillin G Allergy Severe Hives Verified 06/15/18 11:55 *MDRO Multi-Drug Resistant AdvReac Unknown Hives Uncoded 06/15/18 11:55 Organism Home Medications Medication Instructions Recorded Confirmed Type atorvastatin 10 mg PO DAILY 06/14/18 06/14/18 History empagliflozin-metformin [Synjardy] 1 tab PO BID 06/14/18 06/14/18 History insulin glargine-lixisenatide 24 unit HS 06/14/18 06/14/18 History [Soliqua 100/33] levothyroxine 50 mcg PO DAILY 06/14/18 06/14/18 History lisinopril 5 mg PO DAILY 06/14/18 06/14/18 History Active Medications: Active Medications Acetaminophen (Tylenol) 650 mg PO Q4H PRN PRN Reason: fever/pain/ headache Atorvastatin Calcium (Lipitor) 10 mg PO DAILY KEVIN Last Admin: 06/15/18 08:40 Dose: 10 mg Dextrose (D50w Vial) 50 ml IV.PUSH UNSCH PRN PRN Reason: PER HYPOGLYCEMIA PROTOCOL Glucagon (Glucagon Inj) 1 mg OTHER PRN PRN PRN Reason: for Hypoglycemia Protocol Heparin Sodium/Dextrose (Heparin/D5w 25,000 U/250 Ml) 25,000 unit in 250 mls @ 12 mls/hr IV.CONT TITRATE PRN; Protocol PRN Reason: Per Protocol Last Titration: 06/15/18 06:49 Dose: 1,200 units/hr, 12 mls/hr Sodium Chloride (Ns Inj) 1,000 mls @ 70 mls/hr IV.CONT .[id number] KEVIN Last Infusion: 06/15/18 06:48 Dose: 70 mls/hr Insulin Aspart (Novolog Insulin Correctional Sugar Inj) 0 unit SQ ACHS AND 3AM KEVIN; Protocol Last Admin: 06/15/18 11:51 Dose: Not Given Labetalol HCl (Trandate Inj) 10 mg IV.PUSH Q2H PRN PRN Reason: For SBP > 220 or DBP > 110 Pat Own Med: Levothyroxine ( Tirosint) 50 Mcg Capsule 0 each PO DAILY@0600 [facility] Sodium Chloride (Ns Flush) 2 ml IV.FLUSH BID [facility] Last Admin: 06/15/18 08:40 Dose: Not Given Sodium Chloride (Ns Flush) 2 ml IV.FLUSH PRN PRN PRN Reason: FLUSH AFTER USING IV ACCESS Physical Exam Vital Signs / I&O: Vital Signs 06/14/18 17:26 06/14/18 17:48 06/14/18 21:53 Temperature 98 F Pulse Rate 100 H 88 Respiratory Rate 16 18 Blood Pressure 197/86 H 170/68 H Pulse Oximetry 99 98 99 06/14/18 23:36 06/15/18 01:36 06/15/18 03:36 Temperature 98.3 F 98.5 F 98.5 F Pulse Rate 98 H 74 86 Respiratory Rate 20 18 18 Blood Pressure 167/74 H 192/84 H 189/83 H Pulse Oximetry 98 99 99 06/15/18 05:36 06/15/18 07:00 06/15/18 07:20 Temperature 98.6 F Pulse Rate 82 80 Respiratory Rate 20 Blood Pressure 182/77 H Pulse Oximetry 98 99 06/15/18 08:00 06/15/18 09:00 06/15/18 10:00 Temperature 98.6 F Pulse Rate 88 96 H 80 Respiratory Rate 17 Blood Pressure 183/74 H Pulse Oximetry 100 06/15/18 11:00 06/15/18 11:57 06/15/18 12:00 Temperature 98.4 F Pulse Rate 111 H 111 H 103 H Respiratory Rate 16 Blood Pressure 188/83 H Pulse Oximetry 100 Intake & Output 06/14/18 06/15/18 06/15/18 18:59 06:59 18:59 Intake Total 560 / 560 Output Total 750 / 750 Balance -190 / -190 Weight 104.8 kg 105.5 kg Intake: IV 560 / 560 Heparin/D5W 25,000 U/250 mL 25, 86 / 86 000 unit In 250 ml @ Per Protocol 12 mls/hr IV.CONT TITRATE PRN Rx#:[id number] NS Inj 1,000 ML @ 70 mls/hr IV. 474 / 474 CONT .[id number] [facility] Rx#:[id number] Output: Urine 750 / 750 Other: Date of Last Bowel Movement 06/14/18 06/15/18 Neuro: GCS 15 Alert and oriented X 4 Speech Clear CN 2-12 intact Neck: No JVD distention Heart: RRR Lungs: CTA Vascular: palpable R/L radial pulses 2+ palpable R/L DP/PT Extremities: Equal painter supervisor strength UE 5/5 LE 5/5 Laboratory Results - last 24 hr 06/14/18 06/14/18 06/14/18 17:53 17:53 18:30 WBC 8.2 RBC 4.42 Hgb 10.7 L Hct 33.7 L MCV 76.3 L MCH 24.3 L MCHC 31.9 L RDW 15.6 Plt Count 394 MPV 8.7 Neut % (Auto) 56.3 Lymph % (Auto) 35.1 Simpson % (Auto) 6.3 Eos % (Auto) 1.8 Baso % (Auto) 0.5 Neut # (Auto) 4.6 Lymph # (Auto) 2.9 Simpson # (Auto) 0.5 Eos # (Auto) 0.1 Baso # (Auto) 0.0 WBC Differential . Differential Comment Auto diff final ESR PT INR APTT Sodium 141 Potassium 4.8 Chloride 108 H Carbon Dioxide 25.5 Anion Gap 8 BUN 15 Creatinine 0.90 Estimated GFR 77 L POC Glucose Random Glucose 266 H Calcium 9.1 Total Bilirubin 0.4 AST 32 ALT 22 Alkaline Phosphatase 110 Total Creatine Kinase 189 CK-MB (CK-2) 1.1 Troponin I Less than 0.02 L C-Reactive Protein Total Protein 8.2 Albumin 3.5 Triglycerides Cholesterol LDL Cholesterol, Calc HDL Cholesterol Cholesterol/HDL Ratio Urine Color Straw Urine Clarity Clear Urine pH 6.0 Ur Specific Randolph 1.029 Urine Protein Negative Urine Glucose (UA) 500 or greater Urine Ketones Negative Urine Occult Blood Negative Urine Nitrate Negative Urine Bilirubin Negative Urine Urobilinogen Less than 2 Ur Leukocyte Esterase Negative Urine RBC 1 Urine WBC 1 Ur Squamous Epith Cells 1 Micro UA Comment Culture not ind Ur Microscopic Review Not Reportable Urine Culture Comments Culture not ind Blood Type Antibody Screen 06/14/18 06/14/18 06/15/18 18:30 18:30 03:12 WBC RBC Hgb Hct MCV MCH MCHC RDW Plt Count MPV Neut % (Auto) Lymph % (Auto) Simpson % (Auto) Eos % (Auto) Baso % (Auto) Neut # (Auto) Lymph # (Auto) Simpson # (Auto) Eos # (Auto) Baso # (Auto) WBC Differential Differential Comment ESR PT 9.5 L INR 0.9 APTT 21.7 L Sodium Potassium Chloride Carbon Dioxide Anion Gap BUN Creatinine Estimated GFR POC Glucose 179 H Random Glucose Calcium Total Bilirubin AST ALT Alkaline Phosphatase Total Creatine Kinase CK-MB (CK-2) Troponin I C-Reactive Protein Total Protein Albumin Triglycerides Cholesterol LDL Cholesterol, Calc HDL Cholesterol Cholesterol/HDL Ratio Urine Color Urine Clarity Urine pH Ur Specific Randolph Urine Protein Urine Glucose (UA) Urine Ketones Urine Occult Blood Urine Nitrate Urine Bilirubin Urine Urobilinogen Ur Leukocyte Esterase Urine RBC Urine WBC Ur Squamous Epith Cells Micro UA Comment Ur Microscopic Review Urine Culture Comments Blood Type B Positive Antibody Screen Negative 06/15/18 06/15/18 06/15/18 03:22 03:22 03:22 WBC 9.3 RBC 4.19 Hgb 10.7 L Hct 31.6 L MCV 75.5 L MCH 25.6 L MCHC 33.9 RDW 15.4 Plt Count 331 MPV 8.2 Neut % (Auto) Lymph % (Auto) Simpson % (Auto) Eos % (Auto) Baso % (Auto) Neut # (Auto) Lymph # (Auto) Simpson # (Auto) Eos # (Auto) Baso # (Auto) WBC Differential Differential Comment ESR PT INR APTT 37.3 H D Sodium Potassium Chloride Carbon Dioxide Anion Gap BUN Creatinine Estimated GFR POC Glucose Random Glucose Calcium Total Bilirubin AST ALT Alkaline Phosphatase Total Creatine Kinase CK-MB (CK-2) Troponin I C-Reactive Protein Total Protein Albumin Triglycerides 110 Cholesterol 141 LDL Cholesterol, Calc 56 HDL Cholesterol 63.1 H Cholesterol/HDL Ratio 2.23 Urine Color Urine Clarity Urine pH Ur Specific Randolph Urine Protein Urine Glucose (UA) Urine Ketones Urine Occult Blood Urine Nitrate Urine Bilirubin Urine Urobilinogen Ur Leukocyte Esterase Urine RBC Urine WBC Ur Squamous Epith Cells Micro UA Comment Ur Microscopic Review Urine Culture Comments Blood Type Antibody Screen 06/15/18 06/15/18 06/15/18 03:22 03:22 08:01 WBC RBC Hgb Hct MCV MCH MCHC RDW Plt Count MPV Neut % (Auto) Lymph % (Auto) Simpson % (Auto) Eos % (Auto) Baso % (Auto) Neut # (Auto) Lymph # (Auto) Simpson # (Auto) Eos # (Auto) Baso # (Auto) WBC Differential Differential Comment ESR 33 H PT INR APTT Sodium Potassium Chloride Carbon Dioxide Anion Gap BUN Creatinine Estimated GFR POC Glucose 157 H Random Glucose Calcium Total Bilirubin AST ALT Alkaline Phosphatase Total Creatine Kinase CK-MB (CK-2) Troponin I C-Reactive Protein Less than 0.29 Total Protein Albumin Triglycerides Cholesterol LDL Cholesterol, Calc HDL Cholesterol Cholesterol/HDL Ratio Urine Color Urine Clarity Urine pH Ur Specific Randolph Urine Protein Urine Glucose (UA) Urine Ketones Urine Occult Blood Urine Nitrate Urine Bilirubin Urine Urobilinogen Ur Leukocyte Esterase Urine RBC Urine WBC Ur Squamous Epith Cells Micro UA Comment Ur Microscopic Review Urine Culture Comments Blood Type Antibody Screen 06/15/18 06/15/18 09:17 11:38 WBC RBC Hgb Hct MCV MCH MCHC RDW Plt Count MPV Neut % (Auto) Lymph % (Auto) Simpson % (Auto) Eos % (Auto) Baso % (Auto) Neut # (Auto) Lymph # (Auto) Simpson # (Auto) Eos # (Auto) Baso # (Auto) WBC Differential Differential Comment ESR PT INR APTT 41.7 H Sodium Potassium Chloride Carbon Dioxide Anion Gap BUN Creatinine Estimated GFR POC Glucose 148 H Random Glucose Calcium Total Bilirubin AST ALT Alkaline Phosphatase Total Creatine Kinase CK-MB (CK-2) Troponin I C-Reactive Protein Total Protein Albumin Triglycerides Cholesterol LDL Cholesterol, Calc HDL Cholesterol Cholesterol/HDL Ratio Urine Color Urine Clarity Urine pH Ur Specific Randolph Urine Protein Urine Glucose (UA) Urine Ketones Urine Occult Blood Urine Nitrate Urine Bilirubin Urine Urobilinogen Ur Leukocyte Esterase Urine RBC Urine WBC Ur Squamous Epith Cells Micro UA Comment Ur Microscopic Review Urine Culture Comments Blood Type Antibody Screen Impressions Head CT 06/14/18 17:45 CONCLUSION: Slight chronic small vessel ischemic and atrophic changes. . Head CTA 06/14/18 17:45 CONCLUSION: 1. Significantly diminished flow is identified within the internal carotid artery in the carotid siphon on portion with multiple tiny tortuous blood vessels identified supraclinoid bilaterally worse on the left. Findings are most likely from a chronic occlusion, however an acute thrombus is difficult to exclude and a clear filling defect is not visualized based on this examination. Neck CTA 06/14/18 17:45 CONCLUSION: Abnormal appearance to the distal portions of both internal carotid arteries within the petrous apex and the left internal carotid artery prior to the petrous apex demonstrates high-grade stenosis in what appears to be smooth wall thickening of this vessel. Possibility of dissection of the petrous apex portion of the internal carotid artery should be entertained. Chest X-Ray 06/14/18 17:46 CONCLUSION: No acute cardiopulmonary disease. Assessment and Plan - Plan 63/F presented with a 3-4M Hx of left sided headaches with intermittent L sided weakness Reviewed CTA - No significant extracranial vascular disease or plaque Plan Recommend continued medical management (ASA/Plavix/Statin) Will continue to follow Juliana Albert NP [facility] [phone] - Attending Attestation Pt seen and examined and agree with above. She has had intermittent headaches and L UE/LE weakness over past several months. At present, neuro intact. I reviewed her CTA and MR. She has no significant extracranial carotid disease and needs no intervention, only medical management (ASA, statin, and likely plavix). Her intracranial distal ICA appears occluded ?embolic, ?agenesis, ? dissection. Further studies could be done if and only if it would alter management. No follow-up needed in vascular clinic. Ranjit Joseph MD FACS RPVI photographic processor [facility] - Heart and Vascular Surgery at [facility] [phone]
[2018-06-15 15:37] LABS: Hemoglobin A1c 10.6 % (4.3-6.0)
[2018-06-15] MEDS: Sod Chloride 0.9% Inj 1,000 ML IV.CONT SCH (15:45)
--- NOTE | 2018-06-15 19:13 | MR ---
EXAM DATE: 06/15/2018 6:48 PM EDT AGE/SEX: 63 years / Female INDICATIONS: CVA. CLINICAL DATA: This is the patient's initial encounter. Patient reports that signs and symptoms have been present for 1 day and indicates a pain score of 3/10. MEDICAL/SURGICAL HISTORY: Diabetes mellitus type II. Cholecystectomy. Left breast sx. COMPARISON: . TECHNIQUE: Multiplanar, multisequence examination of the brain was performed without contrast. FINDINGS: Cerebrum: There is evidence of signal abnormality within the right parietal periventricular and subc ortical white matter on the diffusion-weighted images indicating probable acute/subacute infarct. Cli nical correlation is recommended. No acute hemorrhage is noted. No midline shift is noted. White Matter: Mild periventricular and subcortical white matter small vessel ischemic changes are no shanna bilaterally. Posterior Fossa: The cerebellum and brainstem are intact. The 4th ventricle is midline. The cerebel lopontine angle is unremarkable. The cerebellar tonsils are normal in position. Diffusion Imaging: No focal areas of restricted diffusion are seen. No evidence of acute infarction . Extracranial: The visualized portions of the orbits and paranasal sinuses are unremarkable. CONCLUSION: 1. Evidence of signal abnormality within the right parietal periventricular and subcortical white ma tter on the diffusion-weighted images indicating probable acute/subacute infarct. Clinical correlatio n is recommended. No acute hemorrhage is noted. No midline shift is noted. 2. Mild periventricular and subcortical white matter small vessel ischemic changes are noted bilater ally. Electronically signed by: Ranjit Glover MD 06/15/2018 7:11 PM EDT
--- NOTE | 2018-06-15 19:15 | MR ---
EXAM DATE: 06/15/2018 7:03 PM EDT AGE/SEX: 63 years / Female INDICATIONS: Gait disorder. Low back pain. CLINICAL DATA: This is the patient's initial encounter. Patient reports that signs and symptoms have been present for 1 day and indicates a pain score of 3/10. MEDICAL/SURGICAL HISTORY: Diabetes mellitus type II. Cholecystectomy. Left breast sx. COMPARISON: . TECHNIQUE: Multiplanar, multisequence MRI of the lumbar spine was performed without contrast. Patie nt was scanned in a sitting position; neutral, flexion, and extension scans were performed in the sa gittal plane. FINDINGS: Vertebra: Homogeneous signal. Normal alignment. Conus: Normal level and configuration. T12-L1: The thecal sac has a normal diameter. No evidence of disc bulge or protrusion. The neural foramina are patent bilaterally. L1-L2: The thecal sac has a normal diameter. No evidence of disc bulge or protrusion. The neural foramina are patent bilaterally. L2-L3: The thecal sac has a normal diameter. No evidence of disc bulge or protrusion. The neural foramina are patent bilaterally. L3-L4: The thecal sac has a normal diameter. No evidence of disc bulge or protrusion. The neural foramina are patent bilaterally. L4-L5: The thecal sac has a normal diameter. No evidence of disc bulge or protrusion. The neural foramina are patent bilaterally. L5-S1: The thecal sac has a normal diameter. No evidence of disc bulge or protrusion. The neural foramina are patent bilaterally. CONCLUSION: 1. Unremarkable MRI of the lumbar spine without compression fracture, spinal stenosis, focal disc he rniation or neuroforaminal narrowing. Electronically signed by: Ranjit Glover MD 06/15/2018 7:14 PM EDT
[2018-06-15] MEDS: Heparin Drip 25,000 UNIT/250 ML BAG IV.CONT PRN (20:19)
[2018-06-16] MEDS: Insulin NovoLOG Aspart Correctional Sugar Inj SQ SCH ×5 (04:04→22:01)
[2018-06-16] MEDS: Sod Chloride 0.9% Inj 1,000 ML IV.CONT SCH (04:05)
[2018-06-16 05:15] LABS: Hematocrit 34.2 % (35.0-46.0); Hemoglobin 10.8 gm/dL (11.6-15.3); Mean Corpuscular HGB Conc 31.6 % (32.0-36.0); Mean Corpuscular Volume 75.8 fL (80.0-100.0); Mean Platelet Volume 8.3 fL (7.0-11.0); Platelet Count 344 th/mm3 (150-450); Red Blood Count 4.51 mil/mm3 (4.00-5.30); Red Cell Distribution Width 15.6 % (11.6-17.2); White Blood Count 6.7 th/mm3 (4.0-11.0)
--- NOTE | 2018-06-16 08:07 | P.PNIM ---
Subjective Interval history: f/u; CVA in no acute distress. still with some upper extremity numbness. complaining of mild pain to the right eye. d/w the RN. Physical Exam Vital signs: Vital Signs 06/15/18 09:00 06/15/18 10:00 06/15/18 11:00 Temperature Pulse Rate 96 H 80 111 H Respiratory Rate Blood Pressure Pulse Oximetry 06/15/18 11:57 06/15/18 12:00 06/15/18 13:00 Temperature 98.4 F Pulse Rate 111 H 103 H 82 Respiratory Rate 16 Blood Pressure 188/83 H Pulse Oximetry 100 06/15/18 14:00 06/15/18 15:00 06/15/18 16:00 Temperature 98.4 F Pulse Rate 82 93 H 79 Respiratory Rate 18 Blood Pressure 171/77 H Pulse Oximetry 99 06/15/18 17:00 06/15/18 17:49 06/15/18 19:00 Temperature 97.9 F Pulse Rate 79 102 H 106 H Respiratory Rate 22 Blood Pressure 155/108 H Pulse Oximetry 98 06/15/18 20:00 06/15/18 21:00 06/15/18 22:00 Temperature Pulse Rate 84 82 78 Respiratory Rate Blood Pressure Pulse Oximetry 98 06/15/18 23:00 06/16/18 00:00 06/16/18 01:00 Temperature 98.0 F Pulse Rate 78 79 82 Respiratory Rate 22 22 Blood Pressure 170/75 H Pulse Oximetry 98 06/16/18 02:00 06/16/18 03:00 06/16/18 04:00 Temperature 97.9 F Pulse Rate 71 84 99 H Respiratory Rate 22 Blood Pressure 151/69 H Pulse Oximetry 99 06/16/18 05:00 06/16/18 06:00 Temperature Pulse Rate 85 79 Respiratory Rate Blood Pressure Pulse Oximetry Intake & Output 06/15/18 06/16/18 06/16/18 18:59 06:59 18:59 Intake Total 2626 / 2626 1730 / 1730 Output Total 400 / 400 Balance 2626 / 2626 1330 / 1330 Weight 105.5 kg Intake: IV 1626 / 1626 1250 / 1250 Heparin/D5W 25,000 U/250 mL 25, 250 / 250 000 unit In 250 ml @ Per Protocol 12 mls/hr IV.CONT TITRATE PRN Rx#:[id number] NS Inj 1,000 ML @ 70 mls/hr IV. 1626 / 1626 1000 / 1000 CONT .[id number] KEVIN Rx#:[id number] Oral 1000 / 1000 480 / 480 Output: Urine 400 / 400 Other: # Voids 6 Date of Last Bowel Movement 06/15/18 - Constitutional no acute distress - Routine HEENT Exam Eye: Present: periorbital swelling - Routine Respiratory Exam Present: CTA bilaterally - Routine Cardiovascular Exam Present: RRR - Routine Abdominal Exam Present: soft - Routine Extremities Exam Comments: no pedal edema. - Routine Neurological Exam Present: alert, oriented X3 Results - Labs CBC & Chem 7: 06/16/18 04:24 06/14/18 17:53 Laboratory Results - last 24 hr 06/15/18 06/15/18 06/15/18 03:22 03:22 03:22 WBC RBC Hgb Hct MCV MCH MCHC RDW Plt Count MPV ESR 33 H APTT POC Glucose Hemoglobin A1c 10.6 H C-Reactive Protein Less than 0.29 06/15/18 06/15/18 06/15/18 08:01 09:17 11:38 WBC RBC Hgb Hct MCV MCH MCHC RDW Plt Count MPV ESR APTT 41.7 H POC Glucose 157 H 148 H Hemoglobin A1c C-Reactive Protein 06/15/18 06/15/18 06/15/18 15:12 17:23 20:12 WBC RBC Hgb Hct MCV MCH MCHC RDW Plt Count MPV ESR APTT 25.2 D POC Glucose 172 H 228 H Hemoglobin A1c C-Reactive Protein 06/15/18 06/16/18 06/16/18 21:37 03:52 04:24 WBC 6.7 RBC 4.51 Hgb 10.8 L Hct 34.2 L MCV 75.8 L MCH 24.0 L MCHC 31.6 L RDW 15.6 Plt Count 344 MPV 8.3 ESR APTT 46.5 H D POC Glucose 237 H Hemoglobin A1c C-Reactive Protein 06/16/18 06/16/18 04:24 07:42 WBC RBC Hgb Hct MCV MCH MCHC RDW Plt Count MPV ESR APTT 60.7 H D POC Glucose 170 H Hemoglobin A1c C-Reactive Protein - Imaging Impressions Head MRI 06/15/18 00:00 CONCLUSION: 1. Evidence of signal abnormality within the right parietal periventricular and subcortical white matter on the diffusion-weighted images indicating probable acute/subacute infarct. Clinical correlation is recommended. No acute hemorrhage is noted. No midline shift is noted. 2. Mild periventricular and subcortical white matter small vessel ischemic changes are noted bilaterally. Lumbar Spine MRI 06/15/18 00:00 CONCLUSION: 1. Unremarkable MRI of the lumbar spine without compression fracture, spinal stenosis, focal disc herniation or neuroforaminal narrowing. Assessment and Plan - Plan 1. CVA Head and neck CTA significant for chronic occlusion in the internal carotid arteries, left greater than right Neurology consulted, appreciate assistance permissive hypertension Heparin drip per protocol and neurology recommendations vascular surgery consulted and recommended no intervention continue statin PT evaluation appreciated. echo pending. 2. Diabetes mellitus Sliding-scale insulin Monitor blood glucose 3. Hypertension Permissive hypertension per neurology Labetalol as needed Maintain blood pressure at 200/100 4- right eye conjunctivitis- start on oph- erythromycin with warm compress. Discharge Planning: dc home when cleared by neurology. case management for [facility].
--- NOTE | 2018-06-16 08:07 | P.DCO ---
- Physical Therapy Order: Evaluate and treat - Occupational Therapy Order: Evaluate and treat - Home Health Nursing Order: Medical education, Signs/symptoms of disease process, Medication education-adverse effect, Nursing assessment with vital signs - Certification I have seen patient Magui Durant on 06/16/18. My clinical findings support the need for the requested home health care services because: Limited mobility due to disease progression I certify that my clinical findings support that this patient is homebound because: Unsteady gait/balance
[2018-06-16] MEDS: Erythromycin 0.5% Opth Oint 3.5 GM Tube RIGHT EYE SCH ×3 (09:11→17:35)
--- NOTE | 2018-06-16 15:01 | ECHRPT ---
Indication: CVA/TIA CONCLUSIONS Mild concentric left ventricular hypertrophy. The left ventricular systolic function is normal with an estimated ejection fraction in the range of 55-60%. Trace mitral valve regurgitation. There is trace tricuspid valve regurgitation. The estimated pulmonary arterial pressure is 38mmHg. Trivial pulmonary valve regurgitation. BP: / HR: Rhythm: MEASUREMENTS (Male / Female) Normal Values Technical Quality:Good 2D ECHO LV Diastolic Diameter PLAX 3.2 cm 4.2 - 5.9 / 3.9 - 5.3 cm LV Systolic Diameter PLAX 2.2 cm IVS Diastolic Thickness 1.2 cm 0.6 - 1.0 / 0.6 - 0.9 cm LVPW Diastolic Thickness 1.3 cm 0.6 - 1.0 / 0.6 - 0.9 cm LV Relative Wall Thickness 0.8 LVOT Diameter 1.9 cm Aortic Root Diameter 2.8 cm LA Systolic Diameter LX 3.1 cm 3.0 - 4.0 / 2.7 - 3.8 cm M-MODE AV Cusp Separation MM 1.9 cm DOPPLER AV Peak Velocity 170.0 cm/s AV Peak Gradient 11.6 mmHg LVOT Peak Velocity 147.0 cm/s LVOT Peak Gradient 8.6 mmHg AV Area Cont Eq pk 2.5 cm Mitral E Point Velocity 79.5 cm/s Mitral A Point Velocity 140.0 cm/s Mitral E to A Ratio 0.6 LV E' Lateral Velocity 10.8 cm/s Mitral E to LV E' Lateral Ratio 7.4 LV E' Septal Velocity 9.6 cm/s Mitral E to LV E' Septal Ratio 8.3 TR Peak Velocity 266.0 cm/s TR Peak Gradient 28.3 mmHg Right Atrial Pressure 10.0 mmHg Pulmonary Artery Systolic Pressu 38.3 mmHg Right Ventricular Systolic Press 38.3 mmHg PV Peak Velocity 149.0 cm/s PV Peak Gradient 8.9 mmHg FINDINGS LEFT VENTRICLE Mild concentric left ventricular hypertrophy. The left ventricular systolic function is normal with an estimated ejection fraction in the range of 55-60%. RIGHT VENTRICLE Normal right ventricular size and systolic function. LEFT ATRIUM The left atrial size is normal. RIGHT ATRIUM The right atrial size is normal. ATRIAL SEPTUM Atrial septal aneurysm is present (benign finding). AORTA The aortic root and proximal ascending aorta are normal in size on limited imaging. MITRAL VALVE Trace mitral valve regurgitation. AORTIC VALVE Trileaflet aortic valve. No aortic valve stenosis or regurgitation. TRICUSPID VALVE There is trace tricuspid valve regurgitation. The estimated pulmonary arterial pressure is 38mmHg. PULMONARY VALVE Trivial pulmonary valve regurgitation. VESSELS The inferior vena cava is normal in size. PERICARDIUM No pericardial effusion. Naveen Davis MD, FACC, [facility] [place] (Electronically Signed) Final Date:16 June 2018 15:00
[2018-06-16] MEDS: Lisinopril 5 MG Tablet PO SCH (17:33)
[2018-06-17] MEDS: Acetaminophen 325 MG Tablet PO PRN ×2 (01:35→07:57)
[2018-06-17] MEDS: Insulin NovoLOG Aspart Correctional Sugar Inj SQ SCH ×5 (01:59→21:22)
[2018-06-17] MEDS: Erythromycin 0.5% Opth Oint 3.5 GM Tube RIGHT EYE SCH ×2 (07:15→14:32)
--- NOTE | 2018-06-17 07:42 | P.PNIM ---
Subjective Interval history: f/u; CVA in no acute distress. complaining of substernal chest pressure/pain which she relates to indigestion. has some nausea but no sob, diaphoresis or emesis. BP trend noted. d/w the RN. Physical Exam Vital signs: Vital Signs 06/16/18 08:00 06/16/18 09:00 06/16/18 11:00 Temperature 97.8 F Pulse Rate 89 93 H 89 Respiratory Rate 17 Blood Pressure 174/74 H Pulse Oximetry 98 06/16/18 12:00 06/16/18 13:00 06/16/18 14:00 Temperature Pulse Rate 89 90 92 H Respiratory Rate Blood Pressure Pulse Oximetry 06/16/18 15:00 06/16/18 16:00 06/16/18 16:41 Temperature 97.8 F Pulse Rate 58 L 58 L Respiratory Rate 17 Blood Pressure 190/81 H 174/82 H Pulse Oximetry 97 06/16/18 16:47 06/16/18 20:00 06/17/18 00:00 Temperature 98.2 F 98 F Pulse Rate 85 85 Respiratory Rate 17 20 Blood Pressure 181/85 H 159/72 H 156/76 H Pulse Oximetry 100 95 06/17/18 01:00 06/17/18 02:00 06/17/18 03:00 Temperature Pulse Rate 76 78 72 Respiratory Rate Blood Pressure Pulse Oximetry 06/17/18 04:00 06/17/18 05:00 06/17/18 06:00 Temperature 98.1 F Pulse Rate 90 84 70 Respiratory Rate 20 Blood Pressure 177/76 H Pulse Oximetry 100 Intake & Output 06/16/18 06/17/18 06/17/18 18:59 06:59 18:59 Intake Total 250 / 250 1000 / 1000 Balance 250 / 250 1000 / 1000 Weight 105.5 kg Intake: IV 250 / 250 1000 / 1000 Heparin/D5W 25,000 U/250 mL 25, 250 / 250 000 unit In 250 ml @ Per Protocol 12 mls/hr IV.CONT TITRATE PRN Rx#:[id number] Other: Date of Last Bowel Movement 06/15/18 - Constitutional no acute distress - Routine Respiratory Exam Present: CTA bilaterally - Routine Cardiovascular Exam Present: RRR - Routine Abdominal Exam Present: soft - Routine Extremities Exam Comments: no pedal edema. - Routine Neurological Exam Present: alert, oriented X3 Results - Labs CBC & Chem 7: 06/16/18 04:24 06/14/18 17:53 Laboratory Results - last 24 hr 06/16/18 06/16/18 06/16/18 07:42 17:34 21:47 POC Glucose 170 H 197 H 241 H 06/17/18 01:51 POC Glucose 250 H Assessment and Plan - Plan 1. CVA Head and neck CTA significant for chronic occlusion in the internal carotid arteries, left greater than right Neurology consulted, appreciate assistance Heparin drip was dc'ed and started on Eliquis. vascular surgery consulted and recommended no intervention; continue medical management. continue statin PT evaluation appreciated. echo with EF 60%. 2. Diabetes mellitus Sliding-scale insulin Monitor blood glucose 3. Hypertension started back on lisinopril will keep monitoring the BP. 4- chest pain- EKG with no acute ST-T changes- will trend the troponin. 5- right eye conjunctivitis- start on oph- erythromycin with warm compress. Discharge Planning: dc home with [facility] within the next 24-48 hrs- when BP is better controlled.
[2018-06-17] MEDS: Lisinopril 5 MG Tablet PO SCH ×2 (07:49→10:43)
--- NOTE | 2018-06-17 09:18 | P.PNNEU ---
Subjective Subjective Comments: mri shows acute r watershed area cva mca lennox Active Medications: Active Medications Acetaminophen (Tylenol) 650 mg PO Q4H PRN PRN Reason: fever/pain/ headache Last Admin: 06/17/18 07:57 Dose: 650 mg Apixaban (Eliquis) 5 mg PO BID [facility] Last Admin: 06/17/18 07:48 Dose: 5 mg Atorvastatin Calcium (Lipitor) 40 mg PO DAILY [facility] Last Admin: 06/17/18 07:49 Dose: 40 mg Dextrose (D50w Vial) 50 ml IV.PUSH UNSCH PRN PRN Reason: PER HYPOGLYCEMIA PROTOCOL Enalaprilat (Vasotec Inj) 1.25 mg IV.PUSH Q8H PRN PRN Reason: SBP > 180 or DBP > 100 Last Admin: 06/17/18 07:48 Dose: 1.25 mg Erythromycin (Ilotycin 0.5% Opth Oint) 1 applicatio RIGHT EYE TID [facility] Last Admin: 06/16/18 17:35 Dose: 1 applicatio Glucagon (Glucagon Inj) 1 mg OTHER PRN PRN PRN Reason: for Hypoglycemia Protocol Insulin Aspart (Novolog Insulin Correctional Sugar Inj) 0 unit SQ ACHS AND 3AM KEVIN; Protocol Last Admin: 06/17/18 01:59 Dose: 5 unit Labetalol HCl (Trandate Inj) 10 mg IV.PUSH Q2H PRN PRN Reason: For SBP > 220 or DBP > 110 Lisinopril (Prinivil) 5 mg PO DAILY [facility] Last Admin: 06/17/18 07:49 Dose: 5 mg Pat Own Med: Levothyroxine ( Tirosint) 50 Mcg Capsule 0 each PO DAILY@0600 [facility] Sodium Chloride (Ns Flush) 2 ml IV.FLUSH BID [facility] Last Admin: 06/16/18 22:02 Dose: 2 ml Sodium Chloride (Ns Flush) 2 ml IV.FLUSH PRN PRN PRN Reason: FLUSH AFTER USING IV ACCESS Allergies/Adverse Reactions: Allergies Allergy/AdvReac Type Severity Reaction Status Date / Time codeine Allergy Severe Nausea/Vomi Verified 06/15/18 11:55 ting diclofenac Allergy Severe Hives Verified 06/15/18 11:55 etodolac Allergy Severe Hives Verified 06/15/18 11:55 flurbiprofen Allergy Severe Hives Verified 06/15/18 11:55 ibuprofen Allergy Severe Hives Verified 06/15/18 11:55 indomethacin Allergy Severe Hives Verified 06/15/18 11:55 ketoprofen Allergy Severe Hives Verified 06/15/18 11:55 ketorolac Allergy Severe Hives Verified 06/15/18 11:55 naproxen Allergy Severe Hives Verified 06/15/18 11:55 oxaprozin Allergy Severe Hives Verified 06/15/18 11:55 penicillin G Allergy Severe Hives Verified 06/15/18 11:55 *MDRO Multi-Drug Resistant AdvReac Unknown Hives Uncoded 06/15/18 11:55 Organism Physical Exam Vital signs: Vital Signs 06/16/18 11:00 06/16/18 12:00 06/16/18 13:00 Temperature 97.8 F Pulse Rate 89 89 90 Respiratory Rate 17 Blood Pressure 174/74 H Pulse Oximetry 98 06/16/18 14:00 06/16/18 15:00 06/16/18 16:00 Temperature 97.8 F Pulse Rate 92 H 58 L 58 L Respiratory Rate 17 Blood Pressure 190/81 H Pulse Oximetry 97 06/16/18 16:41 06/16/18 16:47 06/16/18 20:00 Temperature 98.2 F Pulse Rate 85 Respiratory Rate 17 Blood Pressure 174/82 H 181/85 H 159/72 H Pulse Oximetry 100 06/17/18 00:00 06/17/18 01:00 06/17/18 02:00 Temperature 98 F Pulse Rate 85 76 78 Respiratory Rate 20 Blood Pressure 156/76 H Pulse Oximetry 95 06/17/18 03:00 06/17/18 04:00 06/17/18 05:00 Temperature 98.1 F Pulse Rate 72 90 84 Respiratory Rate 20 Blood Pressure 177/76 H Pulse Oximetry 100 06/17/18 06:00 06/17/18 07:00 06/17/18 07:05 Temperature 98.1 F Pulse Rate 70 97 H Respiratory Rate 17 Blood Pressure 232/106 H 205/90 H Pulse Oximetry 98 Intake & Output 06/16/18 06/17/18 06/17/18 18:59 06:59 18:59 Intake Total 250 / 250 1000 / 1000 Balance 250 / 250 1000 / 1000 Weight 105.5 kg Intake: IV 250 / 250 1000 / 1000 Heparin/D5W 25,000 U/250 mL 25, 250 / 250 000 unit In 250 ml @ Per Protocol 12 mls/hr IV.CONT TITRATE PRN Rx#:[id number] Other: Date of Last Bowel Movement 06/15/18 Narrative: sr vff face sym 5/5 bue and ble jennifer lle awake alert Objective Laboratory Results - last 24 hr 06/16/18 06/16/18 06/17/18 17:34 21:47 01:51 POC Glucose 197 H 241 H 250 H 06/17/18 07:58 POC Glucose 168 H Review/Management - Diagnosis (1) Neurologic abnormality Code(s): R29.818 - Other symptoms and signs involving the nervous system Status: Acute Current Visit: Yes (2) Stenosis of left internal carotid artery Code(s): I65.22 - Occlusion and stenosis of left carotid artery Status: Acute Current Visit: Yes - Review/Management Plan: imp mri shows acute r mca lennox watershed cva her cta neck sometapering but not severe cervical stenosis left ica and the top of ica bilat appears occluded or near occlusion and the r mca fills better tahn left probable severe athereosclerotic dz although cannot r/o alvarado alvarado type picture on eliquis i giancarlo oconnell i would rec txfer to [place] for consideration of internal external bypass gurvinder i giancarlo pt and her daughter keep bp around 160/90 for now to 180/90 on eliquis now
[2018-06-17] MEDS: ALPRAZolam 0.25 MG Tablet PO PRN ×2 (12:17→21:22)
[2018-06-17 14:25] LABS: Free T4 (Free Thyroxine) 1.08 ng/dL (0.76-1.46); Vitamin B12 339 pg/mL (193-986)
--- NOTE | 2018-06-17 23:50 | ECG ---
Date Performed: 06/17/2018 Time Performed: 07:38:48 PTAGE: 63 years EKG: Sinus rhythm . Non-specific ST/T wave changes Borderline ECG Since the PREVIOUS TRACING , no significant change noted DOCTOR: Torito Burt Interpretating Date/Time 06/17/2018 23:49:49
[2018-06-18] MEDS: Sod Chloride 0.9% Inj 1,000 ML IV.CONT SCH ×2 (02:08→09:30)
[2018-06-18] MEDS: Erythromycin 0.5% Opth Oint 3.5 GM Tube RIGHT EYE SCH ×2 (02:36→08:43)
[2018-06-18] MEDS: Insulin NovoLOG Aspart Correctional Sugar Inj SQ SCH ×3 (03:59→11:57)
--- NOTE | 2018-06-18 07:27 | P.PNNEU ---
Subjective Subjective Comments: one spell of left hand weak split second yest then resolved one bp 3 am to 126/ Active Medications: Active Medications Acetaminophen (Tylenol) 650 mg PO Q4H PRN PRN Reason: fever/pain/ headache Last Admin: 06/17/18 07:57 Dose: 650 mg Alprazolam (Xanax) 0.25 mg PO Q8H PRN PRN Reason: anxiety Last Admin: 06/17/18 21:22 Dose: 0.25 mg Apixaban (Eliquis) 5 mg PO BID [facility] Last Admin: 06/17/18 21:14 Dose: 5 mg Atorvastatin Calcium (Lipitor) 40 mg PO DAILY [facility] Last Admin: 06/17/18 10:42 Dose: Not Given Dextrose (D50w Vial) 50 ml IV.PUSH UNSCH PRN PRN Reason: PER HYPOGLYCEMIA PROTOCOL Enalaprilat (Vasotec Inj) 1.25 mg IV.PUSH Q8H PRN PRN Reason: SBP > 180 or DBP > 100 Last Admin: 06/17/18 07:48 Dose: 1.25 mg Erythromycin (Ilotycin 0.5% Opth Oint) 1 applicatio RIGHT EYE TID [facility] Last Admin: 06/18/18 02:36 Dose: Not Given Glucagon (Glucagon Inj) 1 mg OTHER PRN PRN PRN Reason: for Hypoglycemia Protocol Sodium Chloride (Ns Inj) 1,000 mls @ 84 mls/hr IV.CONT .[id number] [facility] Last Admin: 06/18/18 02:08 Dose: Not Given Insulin Aspart (Novolog Insulin Correctional Sugar Inj) 0 unit SQ ACHS AND 3AM KEVIN; Protocol Last Admin: 06/18/18 03:59 Dose: Not Given Labetalol HCl (Trandate Inj) 10 mg IV.PUSH Q2H PRN PRN Reason: For SBP > 220 or DBP > 110 Lisinopril (Prinivil) 5 mg PO DAILY [facility] Last Admin: 06/17/18 10:43 Dose: Not Given Pat Own Med: Levothyroxine ( Tirosint) 50 Mcg Capsule 0 each PO DAILY@0600 [facility] Sodium Chloride (Ns Flush) 2 ml IV.FLUSH BID [facility] Last Admin: 06/17/18 21:25 Dose: 2 ml Sodium Chloride (Ns Flush) 2 ml IV.FLUSH PRN PRN PRN Reason: FLUSH AFTER USING IV ACCESS Allergies/Adverse Reactions: Allergies Allergy/AdvReac Type Severity Reaction Status Date / Time codeine Allergy Severe Nausea/Vomi Verified 06/15/18 11:55 ting diclofenac Allergy Severe Hives Verified 06/15/18 11:55 etodolac Allergy Severe Hives Verified 06/15/18 11:55 flurbiprofen Allergy Severe Hives Verified 06/15/18 11:55 ibuprofen Allergy Severe Hives Verified 06/15/18 11:55 indomethacin Allergy Severe Hives Verified 06/15/18 11:55 ketoprofen Allergy Severe Hives Verified 06/15/18 11:55 ketorolac Allergy Severe Hives Verified 06/15/18 11:55 naproxen Allergy Severe Hives Verified 06/15/18 11:55 oxaprozin Allergy Severe Hives Verified 06/15/18 11:55 penicillin G Allergy Severe Hives Verified 06/15/18 11:55 *MDRO Multi-Drug Resistant AdvReac Unknown Hives Uncoded 06/15/18 11:55 Organism Physical Exam Vital signs: Vital Signs 06/17/18 08:00 06/17/18 09:00 06/17/18 09:35 Temperature Pulse Rate 97 H 82 Respiratory Rate Blood Pressure 162/72 H Pulse Oximetry 06/17/18 10:00 06/17/18 11:00 06/17/18 12:00 Temperature 98.4 F Pulse Rate 80 81 81 Respiratory Rate 18 Blood Pressure 190/77 H Pulse Oximetry 99 06/17/18 13:00 06/17/18 14:00 06/17/18 15:00 Temperature 98.3 F Pulse Rate 81 77 77 Respiratory Rate 16 Blood Pressure 167/72 H Pulse Oximetry 100 06/17/18 16:00 06/17/18 19:00 06/17/18 20:00 Temperature Pulse Rate 80 90 108 H Respiratory Rate Blood Pressure Pulse Oximetry 06/17/18 21:00 06/17/18 21:04 06/17/18 22:00 Temperature 98.1 F Pulse Rate 94 H 84 Respiratory Rate 18 Blood Pressure 158/70 H 148/72 H Pulse Oximetry 100 06/17/18 23:00 06/18/18 00:00 06/18/18 01:00 Temperature 98.1 F Pulse Rate 98 H 70 90 Respiratory Rate 20 Blood Pressure 142/65 H Pulse Oximetry 100 06/18/18 02:00 06/18/18 03:00 06/18/18 03:28 Temperature 98.1 F Pulse Rate 70 80 68 Respiratory Rate 18 Blood Pressure 126/88 Pulse Oximetry 100 06/18/18 04:00 06/18/18 05:00 06/18/18 06:00 Temperature Pulse Rate 70 68 80 Respiratory Rate Blood Pressure Pulse Oximetry Intake & Output 06/17/18 06/18/18 06/18/18 18:59 06:59 18:59 Intake Total 480 / 480 Balance 480 / 480 Weight 105 kg Intake: Oral 480 / 480 Other: # Voids 2 Narrative: vff face sym 5/5 lue lle nl speech Objective Laboratory Results - last 24 hr 06/17/18 06/17/18 06/17/18 07:58 09:31 11:00 POC Glucose 168 H Troponin I Cancelled Less than 0.02 L Total Protein (PEP) Albumin (PEP) Albumin/Globulin Ratio Dywjq-7-Keetfwdex Rdbxl-8-Oxipbemic Beta Globulins Gamma Globulins Vitamin B12 TSH Free T4 06/17/18 06/17/18 06/17/18 11:00 11:05 12:55 POC Glucose 332 H Troponin I Less than 0.02 L Total Protein (PEP) 8.1 Albumin (PEP) 4.54 Albumin/Globulin Ratio 1.28 L Yaucj-5-Pmntsnetb 0.28 Ghjiu-7-Jfdbxvkxm 0.92 Beta Globulins 1.13 H Gamma Globulins 1.22 Vitamin B12 339 TSH 1.930 Free T4 1.08 06/17/18 06/17/18 06/17/18 16:15 18:08 21:16 POC Glucose 238 H 176 H 357 H Troponin I Total Protein (PEP) Albumin (PEP) Albumin/Globulin Ratio Awiwo-8-Fpkwhzwwj Pjtew-8-Yyffqtjdv Beta Globulins Gamma Globulins Vitamin B12 TSH Free T4 06/18/18 03:38 POC Glucose 261 H Troponin I Total Protein (PEP) Albumin (PEP) Albumin/Globulin Ratio Zyufh-0-Klgkqezhx Uuglk-8-Rkzlrygre Beta Globulins Gamma Globulins Vitamin B12 TSH Free T4 Review/Management - Diagnosis (1) Neurologic abnormality Code(s): R29.818 - Other symptoms and signs involving the nervous system Status: Acute Current Visit: Yes (2) Stenosis of left internal carotid artery Code(s): I65.22 - Occlusion and stenosis of left carotid artery Status: Acute Current Visit: Yes - Review/Management Plan: imp mri shows acute r mca lennox watershed cva her cta neck sometapering but not severe cervical stenosis left ica and the top of ica bilat appears occluded or near occlusion and the r mca fills better tahn left probable severe athereosclerotic dz although cannot r/o alvarado alvarado type picture on eliquis i giancarlo oconnell i would rec txfer to [place] for consideration of internal external bypass gurvinder i giancarlo pt and her daughter keep bp around 160/90 for now to 180/90 on eliquis now 06/18/18 one kelley nguyen keep bp ivf on and needs to go to [place] stat
--- NOTE | 2018-06-18 07:59 | P.PNIM ---
Subjective Interval history: f/u; CVA in no acute distress. had transient weakness of the left upper extremity last night; this has resolved. BP trend noted. Physical Exam Vital signs: Vital Signs 06/17/18 08:00 06/17/18 09:00 06/17/18 09:35 Temperature Pulse Rate 97 H 82 Respiratory Rate Blood Pressure 162/72 H Pulse Oximetry 06/17/18 10:00 06/17/18 11:00 06/17/18 12:00 Temperature 98.4 F Pulse Rate 80 81 81 Respiratory Rate 18 Blood Pressure 190/77 H Pulse Oximetry 99 06/17/18 13:00 06/17/18 14:00 06/17/18 15:00 Temperature 98.3 F Pulse Rate 81 77 77 Respiratory Rate 16 Blood Pressure 167/72 H Pulse Oximetry 100 06/17/18 16:00 06/17/18 19:00 06/17/18 20:00 Temperature Pulse Rate 80 90 108 H Respiratory Rate Blood Pressure Pulse Oximetry 06/17/18 21:00 06/17/18 21:04 06/17/18 22:00 Temperature 98.1 F Pulse Rate 94 H 84 Respiratory Rate 18 Blood Pressure 158/70 H 148/72 H Pulse Oximetry 100 06/17/18 23:00 06/18/18 00:00 06/18/18 01:00 Temperature 98.1 F Pulse Rate 98 H 70 90 Respiratory Rate 20 Blood Pressure 142/65 H Pulse Oximetry 100 06/18/18 02:00 06/18/18 03:00 06/18/18 03:28 Temperature 98.1 F Pulse Rate 70 80 68 Respiratory Rate 18 Blood Pressure 126/88 Pulse Oximetry 100 06/18/18 04:00 06/18/18 05:00 06/18/18 06:00 Temperature Pulse Rate 70 68 80 Respiratory Rate Blood Pressure Pulse Oximetry Intake & Output 06/17/18 06/18/18 06/18/18 18:59 06:59 18:59 Intake Total 480 / 480 Balance 480 / 480 Weight 105 kg Intake: Oral 480 / 480 Other: # Voids 2 - Constitutional no acute distress - Routine Respiratory Exam Present: CTA bilaterally - Routine Cardiovascular Exam Present: RRR - Routine Abdominal Exam Present: soft - Routine Extremities Exam Comments: no pedal edema. - Routine Neurological Exam Present: alert, oriented X3 Results - Labs CBC & Chem 7: 06/16/18 04:24 06/14/18 17:53 Laboratory Results - last 24 hr 06/17/18 06/17/18 06/17/18 07:58 09:31 11:00 POC Glucose 168 H Troponin I Cancelled Less than 0.02 L Total Protein (PEP) Albumin (PEP) Albumin/Globulin Ratio Csgnq-9-Zcxycjuqu Zlxjr-4-Ocfcvddbb Beta Globulins Gamma Globulins Vitamin B12 TSH Free T4 06/17/18 06/17/18 06/17/18 11:00 11:05 12:55 POC Glucose 332 H Troponin I Less than 0.02 L Total Protein (PEP) 8.1 Albumin (PEP) 4.54 Albumin/Globulin Ratio 1.28 L Yxtxl-8-Mglekegmu 0.28 Pmuck-2-Hxfnliirb 0.92 Beta Globulins 1.13 H Gamma Globulins 1.22 Vitamin B12 339 TSH 1.930 Free T4 1.08 06/17/18 06/17/18 06/17/18 16:15 18:08 21:16 POC Glucose 238 H 176 H 357 H Troponin I Total Protein (PEP) Albumin (PEP) Albumin/Globulin Ratio Febqe-1-Flqbjeqau Pudgc-6-Dbkdlmdqa Beta Globulins Gamma Globulins Vitamin B12 TSH Free T4 06/18/18 06/18/18 03:38 07:38 POC Glucose 261 H 239 H Troponin I Total Protein (PEP) Albumin (PEP) Albumin/Globulin Ratio Kmogh-4-Htqbtwepa Eixqd-0-Febravxtw Beta Globulins Gamma Globulins Vitamin B12 TSH Free T4 Assessment and Plan - Plan 1. CVA Head and neck CTA significant for chronic occlusion in the internal carotid arteries, left greater than right Neurology consulted; and recommended that the patient to be transferred to [facility]. Heparin drip was dc'ed and started on Eliquis. will keep the SBP 140-160; started on IV fluid as the BP dropped last night; hold lisinopril today. vascular surgery consulted and recommended no intervention; continue medical management. continue statin PT evaluation appreciated. echo with EF 60%. 2. Diabetes mellitus Sliding-scale insulin Monitor blood glucose 3. Hypertension management as noted above. 4- chest pain- has resolved. EKG with no acute ST-T changes with negative troponin. 5- right eye conjunctivitis- started on oph- erythromycin with warm compress. Discharge Planning: needs to be transferred to [facility]- per neurology/ case management consulted.
[2018-06-18] MEDS: ALPRAZolam 0.25 MG Tablet PO PRN (08:46)
[2018-06-18 10:01] VITALS: RESP 17; TEMP 98.5
[2018-06-18 11:28] VITALS: BP 166/81; O2SAT 99
[2018-06-18 13:19] VITALS: PULSE 80
--- NOTE | 2018-06-18 13:33 | P.DS ---
Date of admission: 06/14/18 20:33 Primary care physician: Elvie Walsh MD Brief History from admission: 63-year-old female with a past medical history significant for previous CVA, diabetes mellitus and hypertension presents the emergency department for the evaluation of intermittent left-sided weakness and numbness/tingling of her face. The patient reports for the past 3-4 months she has been having left- sided upper and lower extremity weakness. Symptoms occur intermittently and she will lose her balance or drop objects. The patient has been seen by Dr. Cortez as an outpatient and had an MRI which showed a history of a previous stroke that likely occurred in early May. She had an outpatient MRA done on Thursday. Head and neck CTA significant for chronic occlusion of the internal carotid arteries. The patient reports that this morning she had a burning/ tingling sensation on her face surrounding both of her eyes. She denies any changes in vision. Endorses associated headache. She reports her symptoms have improved since her arrival in the emergency department. She denies any chest pain or shortness of breath. No abdominal pain. No nausea/vomiting/ diarrhea. No fever/chills. DS: Medications - Discharge Medications Prescriptions: apixaban [Eliquis] 5 mg PO BID 30 Days #60 tab atorvastatin 40 mg PO DAILY 30 Days #30 tab erythromycin 1 applicatio RIGHT EYE TID 3 Days #1 g DS: Summary Hospital Course: 1. CVA Head and neck CTA significant for chronic occlusion in the internal carotid arteries, left greater than right Neurology consulted, appreciate assistance Heparin drip was dc'ed and started on Eliquis. our vascular surgery consulted and recommended no intervention; continue medical management. however the neurology recommended urgent transfer to [facility] for further evaluation. continue statin PT evaluation appreciated. echo with EF 60%. 2. Diabetes mellitus Sliding-scale insulin Monitor blood glucose 3. Hypertension started back on lisinopril will keep monitoring the BP. 4- chest pain- EKG with no acute ST-T changes- will trend the troponin. 5- right eye conjunctivitis- start on oph- erythromycin with warm compress. - Time Spent with Patient Total time spent providing and/or coordinating discharge services: Greater than 30 minutes (35 min.) Exam Vital signs: Vital Signs 06/17/18 14:00 06/17/18 15:00 06/17/18 16:00 Temperature 98.3 F Pulse Rate 77 77 80 Respiratory Rate 16 Blood Pressure 167/72 H Pulse Oximetry 100 06/17/18 19:00 06/17/18 20:00 06/17/18 21:00 Temperature 98.1 F Pulse Rate 90 108 H 94 H Respiratory Rate 18 Blood Pressure 158/70 H Pulse Oximetry 100 06/17/18 21:04 06/17/18 22:00 06/17/18 23:00 Temperature Pulse Rate 84 98 H Respiratory Rate Blood Pressure 148/72 H Pulse Oximetry 06/18/18 00:00 06/18/18 01:00 06/18/18 02:00 Temperature 98.1 F Pulse Rate 70 90 70 Respiratory Rate 20 Blood Pressure 142/65 H Pulse Oximetry 100 06/18/18 03:00 06/18/18 03:28 06/18/18 04:00 Temperature 98.1 F Pulse Rate 80 68 70 Respiratory Rate 18 Blood Pressure 126/88 Pulse Oximetry 100 06/18/18 05:00 06/18/18 06:00 06/18/18 07:00 Temperature 98.5 F Pulse Rate 68 80 78 Respiratory Rate 17 Blood Pressure 175/75 H Pulse Oximetry 100 06/18/18 08:00 06/18/18 09:00 06/18/18 10:00 Temperature Pulse Rate 84 84 89 Respiratory Rate Blood Pressure Pulse Oximetry 06/18/18 11:00 06/18/18 12:00 06/18/18 13:00 Temperature Pulse Rate 83 83 80 Respiratory Rate 17 Blood Pressure 166/81 H Pulse Oximetry 99 Intake & Output 06/17/18 06/18/18 06/18/18 18:59 06:59 18:59 Intake Total 480 / 480 Balance 480 / 480 Weight 105 kg Intake: Oral 480 / 480 Other: # Voids 2 - Constitutional no acute distress - Routine Respiratory Exam Present: CTA bilaterally - Routine Cardiovascular Exam Present: RRR - Routine Abdominal Exam Present: soft - Routine Extremities Exam Comments: no pedal edema. - Routine Neurological Exam Present: alert, oriented X3 Results Procedures completed during hospitalization: none. Labs on day of discharge: Labs from last 24 hours 06/18/18 06/18/18 06/18/18 11:30 07:38 03:38 POC Glucose 313 H 239 H 261 H Troponin I Total Protein (PEP) Albumin (PEP) Albumin/Globulin Ratio Xnfva-4-Nkksqdjfe Amnoy-8-Yppizdjjb Beta Globulins Gamma Globulins Vitamin B12 Free T4 RPR 06/17/18 06/17/18 06/17/18 21:16 18:08 16:15 POC Glucose 357 H 176 H 238 H Troponin I Total Protein (PEP) Albumin (PEP) Albumin/Globulin Ratio Gclfd-4-Jbaiwpvzx Givgy-3-Ikhweknqf Beta Globulins Gamma Globulins Vitamin B12 Free T4 RPR 06/17/18 06/17/18 12:55 11:00 POC Glucose Troponin I Less than 0.02 L Total Protein (PEP) 8.1 Albumin (PEP) 4.54 Albumin/Globulin Ratio 1.28 L Imcxl-5-Qnpfindeb 0.28 Nzsmy-3-Hweoiutnb 0.92 Beta Globulins 1.13 H Gamma Globulins 1.22 Vitamin B12 339 Free T4 1.08 RPR Nonreactive - Impressions ITS Impressions Head CT 06/14/18 17:45 CONCLUSION: Slight chronic small vessel ischemic and atrophic changes. . Head CTA 06/14/18 17:45 CONCLUSION: 1. Significantly diminished flow is identified within the internal carotid artery in the carotid siphon on portion with multiple tiny tortuous blood vessels identified supraclinoid bilaterally worse on the left. Findings are most likely from a chronic occlusion, however an acute thrombus is difficult to exclude and a clear filling defect is not visualized based on this examination. Neck CTA 06/14/18 17:45 CONCLUSION: Abnormal appearance to the distal portions of both internal carotid arteries within the petrous apex and the left internal carotid artery prior to the petrous apex demonstrates high-grade stenosis in what appears to be smooth wall thickening of this vessel. Possibility of dissection of the petrous apex portion of the internal carotid artery should be entertained. Chest X-Ray 06/14/18 17:46 CONCLUSION: No acute cardiopulmonary disease. Head MRI 06/15/18 00:00 CONCLUSION: 1. Evidence of signal abnormality within the right parietal periventricular and subcortical white matter on the diffusion-weighted images indicating probable acute/subacute infarct. Clinical correlation is recommended. No acute hemorrhage is noted. No midline shift is noted. 2. Mild periventricular and subcortical white matter small vessel ischemic changes are noted bilaterally. Lumbar Spine MRI 06/15/18 00:00 CONCLUSION: 1. Unremarkable MRI of the lumbar spine without compression fracture, spinal stenosis, focal disc herniation or neuroforaminal narrowing. Discharge Plan - Discharge Disposition Patient Disposition: 70 Transfer To Other Facility - Discharge Condition Condition: Serious - Discharge Order Discharge Orders: Discharge Order (Routine); Ordered 06/18/18 Ordered By: Juan Jose Martin - Physicians Team Primary Care Provider: Elvie Walsh Attending Provider: Juan Jose Martin Other Providers: Diane Awan MD ; Kerry Santizo MD ; Ranjit Joseph MD
--- NOTE | 2018-06-18 13:34 | P.PNADD ---
Addendum to Inpatient Note Reason for Addendum: Additional Documentation (case was reviewed with and case management today; patient will be transferred urgently to [facility] for further evaluation. time spent on discharge planning 35 min.)
[2018-06-18 16:50] LABS: Anti-Nuclear Antibody Screen Pos (Neg)
== END 2018-06-18 14:50 | disposition short-term general hospital (02) ==
LOC: NEPE 17:11 → NEDA 20:33 → HCPC 23:15
PROVIDERS: ADMIT Internal Medicine; ATTEND Internal Medicine